=== PATIENT | male | born 1955 | race Caucasian/White ===

== ENCOUNTER → 2019-02-24 | Outpatient (CLI) | payer BC | LOC: M WUC 10:24 | PROVIDERS: ATTEND Physician Assistant | DX: M10.9 Gout, unspecified (principal) ==

== ENCOUNTER → 2020-07-15 | Outpatient (CLI) | payer MEDICARE ==
[~2020-07-15] MED LIST: ELIQ5TAB PO; ENTR1TAB PO; FURO40TA2 PO; POTA1TAB21 PO
--- NOTE | 2020-07-15 15:59 | REP ---
INDICATION: HTN. COMPARISON: No comparison radiographs. TECHNIQUE: Two views.. FINDINGS: The lungs are somewhat hyperinflated overall. There is moderate cardiac enlargement. Cardiothoracic ratio is increased measuring 53.0%. Thoracic aorta is somewhat tortuous. There are degenerative changes in the thoracic spine. Pulmonary vasculature is not increased. There is blunting of the right lateral and right posterior pleural angle and there is discoid atelectasis in the right lower lobe posteriorly adjacent to this. No infiltrate is seen. IMPRESSION: Cardiomegaly with a small right pleural effusion. Mild platelike atelectasis right base. <Electronically signed by Eduardo Lemos > 07/15/20 [id number]
[2020-07-15 16:42] LABS: HEMATOCRIT 47.9 % (42.0-52.0); HEMOGLOBIN 15.2 g/dl (13.5-17.5); MEAN CORPUSCULAR HEMOGLOBIN 31.5 pg (27.0-33.0); MEAN CORPUSCULAR HGB CONC 31.7 g/dl (32.0-36.5); MEAN CORPUSCULAR VOLUME 99.4 fl (80.0-96.0); PLATELET COUNT, AUTOMATED 231 10^3/uL (150-450); RED BLOOD COUNT 4.82 10^6/uL (4.30-6.10); WHITE BLOOD COUNT 9.6 10^3/uL (4.0-10.0)
[2020-07-15 17:15] LABS: HEMOGLOBIN A1c 6.4 %
[2020-07-15 17:25] LABS: ALBUMIN 3.5 GM/DL (3.2-5.2); ALT/SGPT 64 U/L (12-78); BILIRUBIN,TOTAL 1.1 MG/DL (0.2-1.0); BLOOD UREA NITROGEN 16 MG/DL (7-18); CALCIUM LEVEL 9.4 MG/DL (8.8-10.2); CARBON DIOXIDE LEVEL 27 MEQ/L (21-32); CHLORIDE LEVEL 107 MEQ/L (98-107); CHOLESTEROL LEVEL 125 MG/DL (<200); CHOLESTEROL RISK RATIO 3.378 (<5); CREATININE FOR GFR 1.02 MG/DL (0.70-1.30); GLOMERULAR FILTRATION RATE > 60.0 (>49); GLUCOSE, FASTING 99 MG/DL (70-100); HDL CHOLESTEROL 37 MG/DL (>40); LDL CHOLESTEROL 76 MG/DL (<100); NON-HDL-C 88 MG/DL; POTASSIUM SERUM 5.3 MEQ/L (3.5-5.1); PROSTATIC SPECIFIC AG MONITOR 1.19 NG/ML (< 4.00); SODIUM LEVEL 140 MEQ/L (136-145); TESTOSTERONE 129 NG/DL (241-827); TOTAL PROTEIN 6.6 GM/DL (6.4-8.2); TRIGLYCERIDES LEVEL 62 MG/DL (<150)
== END ==
LOC: M WUC 11:27
PROVIDERS: ATTEND Family Medicine
DX: I51.7 Cardiomegaly (principal); J90 Pleural effusion, not elsewhere classified; J98.11 Atelectasis; E03.9 Hypothyroidism, unspecified

== ENCOUNTER 2020-07-17 07:25 | Inpatient (IN) | payer MEDICARE ==
[2020-07-17] VITALS (21 sets, daily range): BP systolic 108–139; BP diastolic 68–101
[~2020-07-17] VITALS: Ht 182.9 cm; Wt 89.6 kg
[2020-07-17] MEDS ORDERED: POTA1TAB21 PO (07:42)
[2020-07-17] MEDS ORDERED: FURO40TA2 PO (07:42)
[2020-07-17] MEDS: METOPROLOL 5 MG/5 ML VIAL IV SCH ×6 (07:56→09:21)
[2020-07-17] MEDS ORDERED: ASPIRIN 81 MG CHEW TABLET PO ONE (08:15)
--- NOTE | 2020-07-17 08:53 | REP ---
INDICATION: CHEST PAIN. COMPARISON: 07/15/2020. TECHNIQUE: SINGLE PORTABLE AP VIEW OF THE CHEST WAS PERFORMED. FINDINGS: Mild parenchymal opacity in the right lung base likely represents mild atelectasis or infiltrate. The left lung appears clear. The heart is mildly enlarged. There is mild calcification of the thoracic aorta. The mediastinal silhouette is unchanged. IMPRESSION: Mild right base atelectasis/infiltrate.Mild cardiomegaly. <Electronically signed by Laith Palomares > 07/17/20 [id number]
--- NOTE | 2020-07-17 08:54 | REP ---
INDICATION: swelling COMPARISON: None. TECHNIQUE: Four views obtained. FINDINGS: There is no acute fracture or dislocation. There is moderate diffuse joint space narrowing with mild subchondral sclerosis and cystic change. Vascular calcifications are seen posteriorly. There does not appear to be a significant joint effusion. IMPRESSION: No fracture or dislocation. Moderate degenerative changes. <Electronically signed by Laith Palomares > 07/17/20 0914
[2020-07-17] MEDS ORDERED: METOPROLOL 5 MG/5 ML VIAL IV SCH (09:00)
[2020-07-17] MEDS ORDERED: METOPROLOL TART 50 MG TAB PO ONE ×2 (09:00→09:30)
[2020-07-17] MEDS ORDERED: APIXABAN 5 MG TAB (ELIQUIS) PO ONE (09:00)
[2020-07-17] MEDS ORDERED: FUROSEMIDE 40 MG TAB PO ONE (09:00)
[2020-07-17] MEDS ORDERED: FUROSEMIDE 40MG/4ML VIAL (J1940) As Ordered ONE (09:00)
[2020-07-17] MEDS ORDERED: FUROSEMIDE 40MG/4ML VIAL (J1940) IV ONE (09:00)
[2020-07-17 09:26] LABS: ALBUMIN 3.5 GM/DL (3.2-5.2); BILIRUBIN,DIRECT 0.4 MG/DL (0.0-0.2); BILIRUBIN,TOTAL 0.9 MG/DL (0.2-1.0); FREE T4 1.77 NG/DL (0.76-1.46); MAGNESIUM LEVEL 1.9 MG/DL (1.8-2.4); THYROID STIMULATING HORMONE 1.88 uIU/ML (0.358-3.740); TOTAL PROTEIN 6.5 GM/DL (6.4-8.2)
[2020-07-17 09:51] LABS: BASO # 0.1 10^3/uL (0.0-0.2); BASO % 0.8 % (0.0-1.0); EOS # 0.1 10^3/uL (0.0-0.5); EOS % 1.3 % (0.0-3.0); HEMATOCRIT 47.2 % (42.0-52.0); HEMOGLOBIN 14.7 g/dl (13.5-17.5); LYMPH # 1.9 10^3/uL (1.5-5.0); LYMPH % 19.8 % (24.0-44.0); MEAN CORPUSCULAR HEMOGLOBIN 30.3 pg (27.0-33.0); MEAN CORPUSCULAR HGB CONC 31.1 g/dl (32.0-36.5); MEAN CORPUSCULAR VOLUME 97.3 fl (80.0-96.0); MONO % 10.5 % (0.0-5.0); NEUTROPHILS # 6.5 10^3/uL (1.5-8.5); NEUTROPHILS % 67.1 % (36.0-66.0); PLATELET COUNT, AUTOMATED 237 10^3/uL (150-450); RED BLOOD COUNT 4.85 10^6/uL (4.30-6.10); WHITE BLOOD COUNT 9.7 10^3/uL (4.0-10.0)
[2020-07-17 10:01] LABS: INR 1.14; PROTHROMBIN TIME 14.9 SECONDS (12.5-14.3)
[2020-07-17 10:02] LABS: PARTIAL THROMBOPLASTIN TIME 30.3 SECONDS (24.2-38.5)
[2020-07-17] MEDS ORDERED: HEPARIN SOD (PORCINE) 5000UNITS/ML 1ML VIAL/SYRINGE IV PRN (11:15)
[2020-07-17] MEDS ORDERED: FUROSEMIDE injection 250 MG in D5W 225 ML IV SCH (11:15)
[2020-07-17] MEDS: diltiaZEM 125 MG in NS 100 ML IV SCH (12:25)
--- NOTE | 2020-07-17 17:43 | HPEPDOC ---
General Date of Admission Jul 17, 2020 at 10:13 Date of Service: Jul 17, 2020 Primary Care Physician: Lynne Manley Attending Physician: SHANNON GALLO MD Chief Complaint The patient is a 65-year-old male admitted with a reason for visit of Atrial Flutter With Rapid Ventricular Response. History of Present Illness History of present illness: Mr. Sahni is a 65-year-old male patient with no known medical comorbidities was sent to the [facility] ED by his PCP as his EKG was abnormal. The ED patient reports having mild shortness of breath on exertion since 3 weeks, not that severe that he has to stop walking, and bilateral swelling of the legs extending up to the knees. Denies having any orthopnea. He reports his swelling in legs initially started in left leg and gradually progressed to right leg. He denies having any head aces, chest pain, abdominal pain, nausea, vomiting, diarrhea. Past medical history: No known medical comorbidities. Past surgical history: Left knee surgery 50 years ago. Social history: Patient lives with his , reports smoking a pipe occasionally, alcohol over the weekend like 3 to 5 beers, reports no illicit drug use, no recreational drug use. Family History: Non- contributory. REVIEW OF SYSTEMS: Constitutional: Denies having fever, chills, night sweats, weight loss, headaches. Eyes: Denies any blurry vision or double vision. ENT: Denies any dysphagia, odynophagia, ear discharge. Cardiovascular: Denies any chest pain or palpitations. Respiratory: Mild shortness of breath, no cough Gastrointestinal (GI): Denies any nausea or vomiting. Genitourinary: Denies dysuria, hematuria. Musculoskeletal: Denies any muscle aches and pains. Skin: Denies any rashes or ulcers. All other review of systems is negative. PHYSICAL EXAMINATION: Vital Signs: Temperature: 97.9 Pulse: 121 RR: 16 BP: 121/81 Oxygen saturation %: 91 on room air General: Well developed, Patient is awake, alert, oriented times three, laying in bed , no apparent distress. Eyes: Conjunctiva clear, pupils equal round and reactive to light. ENT: Hearing Bilateral normal. No nasal deviation, oropharynx clear with no lesions/erythema. Cardiovascular: S1, S2, normal rhythm, no murmur, rub, or gallop. Respiratory: Bilateral lower lobes crackles, normal breath sounds are heard in upper lobes, no rhonchi, wheezes or rubs. Abdomen: Soft, bowel sounds positive, no bruits. Nontender on palpation. Extremities: No clubbing or cyanosis. 2+ pedal edema noted in bilateral lower limbs extending up to the knees. 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 Cranial nerves III-XII grossly intact. Motor: Strength normal, patient moves all extremities. Skin: No rashes, lesions, ulcerations, subcutaneous nodules or induration. Imaging: Chest x-ray: 07/17/2020, reported as mild right base atelectasis/infiltration. Mild cardiomegaly. Left knee imagin07/17/2020, reported as no fracture or dislocation. Moderate degenerative changes. Assessment: Mr. Sahni is a 65 year old male patient with no known comorbidities was told by his PCP to come to the [facility] ED as he was having abnormal EKG. He reports having mild shortness of breath on exertion since 3 weeks, no chest pain. Upon workup in the ED his EKG was showing consistently atrial fib rillation/atrial flutter. Plan: Atrial fibrillation/atrial flutter: Patient had a heart rate in 130-140, Will start him on cardiazem 15mg drip, will titrate based on his heart rate. Decreased Cardizem to 5 mg drip with holding parameters of less than 110 heart rate. If his heart rate is less than 100 consistently for at least 1 hour switch him to 30mg every 6 Cardizem by mouth and stop the drip in 1-2 hours after the switch. Will repeat his TSH and free T4 levels to see if it is related to her hyperthyroidism (his initial free T4 levels are mildly elevated). Will get to urine tox screen just to rule out any intoxication. His electrolytes were normal , Will continue to monitor if any abnormal will try to replace them. Patient was given a dose of Eliquis 5 mg ED, start him on heparin drip at 21:00 today. Ischemic cardiomyopathy vs nonischemic cardiomyopathy: His initial troponins were elevated 0.46 Will trend his troponins if downtrending Will continue to monitor. Will get 2-D echo to rule out structural abnormality/valvular abnormality. Lower extremity pedal edema: Patient has bilateral pedal edema. Will start on Lasix 40 mg IV daily. Will obtain 2-D echo. DVT prophylaxis: Teds and sequentials. Home Medications Scheduled Apixaban (Eliquis) 5 Mg Tablet, 5 MG PO BID Furosemide (Furosemide) 40 Mg Tablet, 40 MG PO DAILY, (Reported) Potassium Chloride (Potassium Chloride) 8 Meq Tablet.er, 8 MEQ PO DAILY, (Reported) Sacubitril/Valsartan (Entresto 24 mg-26 mg Tablet) 1 Each Tablet, 1 TAB PO BID Allergies Coded Allergies: No Known Allergies (Unverified , 07/17/20) A-FIB/CHADSVASC A-FIB History Current/History of A-Fib/PAF?: Yes Current PO Anticoag Therapy: Yes Vital Signs Vital Signs Date Time Temp Pulse Resp B/P (MAP) Pulse Ox O2 Delivery O2 Flow Rate FiO2 07/17/20 13:30 125 130/68 (88) 86 Room Air 07/17/20 12:00 97.3 16 07/17/20 11:30 2.0 Laboratory Data Labs 24H Laboratory Tests 2 07/17/20 07:47: POC Glucose (Misc Panel) 177H, POC Sodium (Misc Panel) 141, POC Potassium (Misc Panel) 4.1, POC Chloride (Misc Panel) 104, POC Total CO2 (Misc Panel) 25.0, POC Blood Urea Nitrogen (Misc Panel 25, POC Ionized Calcium (Misc Panel) 5.0, POC Lactate (Misc Panel) 2.35*H, POC Creatinine (Misc Panel) 1.1, POC Hematocrit (Misc Panel) 48.0 07/17/20 07:48: Immature Granulocyte % (Auto) 0.5, Neutrophils (%) (Auto) 67.1H, Lymphocytes (%) (Auto) 19.8L, Monocytes (%) (Auto) 10.5H, Eosinophils (%) (Auto) 1.3, Basophils (%) (Auto) 0.8, Neutrophils # (Auto) 6.5, Lymphocytes # (Auto) 1.9, Monocytes # (Auto) 1.0H, Eosinophils # (Auto) 0.1, Basophils # (Auto) 0.1, Nucleated Red Blood Cells % (auto) 0.0, Prothrombin Time 14.9H, Prothromb Time International Ratio 1.14, Activated Partial Thromboplast Time 30.3, Magnesium Level 1.9, Total Bilirubin 0.9, Direct Bilirubin 0.4H, Aspartate Amino Transf (AST/SGOT) 53H, Alanine Aminotransferase (ALT/SGPT) 72, Alkaline Phosphatase 95, AN-Xeq-D-Type Natriuretic Peptide 4150H, Total Protein 6.5, Albumin 3.5, Albumin/Globulin Ratio 1.2, Lipase 118, Thyroid Stimulating Hormone (TSH) 1.880, Free Thyroxine 1.77H 07/17/20 07:50: POC Troponin I (Misc) 0.46H 07/17/20 09:55: POC Troponin I (Misc) 0.30H 07/17/20 12:20: Lactic Acid Followup at 4 Hours 2.1*H CBC/BMP Laboratory Tests 07/17/20 07:48 Plan / VTE VTE Prophylaxis Ordered?: Yes GME ATTESTATION GME ATTESTATION My faculty preceptor for this patient encounter was physically present during the encounter and was fully available. All aspects of the patient interview, examination, medical decision making process, and medical care plan development were reviewed and approved by the faculty preceptor. The faculty preceptor is aware and concurs with the plan as stated in the body of this note and will attest to such by his/her cosignature. ATTENDING NOTE Patient was seen and examined by me personally with the residents/ students. I agree with the above assessment and plan Henrique Nielsen MD Jul 17, 2020 15:40 SHANNON GALLO MD Jul 21, 2020 12:45
--- NOTE | 2020-07-17 17:50 | ECGEPIP ---
[facility] Test Date: 2020-07-17 Pat Name: GRAYSON MASTERSON Department: Room: [place] [address] Gender: Male Floral Department Specialist: NISSA : 1955 Requested By: Henrique Nielsen Order Number: [id number] Reading MD: Art Lopez Measurements Intervals [place] Rate: 100 P: [place]: 0 QRS: 60 QRSD: 102 T: 142 QT: 393 QTc: 509 Interpretive Statements Underlying atrial flutter with essentially controlled ventricular response. F Frequent isolated PVCs Low limb voltage with slow precordial R wave progression; body habitus versus p pulmonary disease. Rule out prior septal infarction. Prominent precordial voltage with lateral strain pattern; probable LVH. Slower rate than earlier the same day. Electronically Signed on 07-17-2020 17:50:07 EDT by Art Lopez
[2020-07-17] MEDS ORDERED: HEPARIN DRIP 25,000 UNITS in IV 1 EA IV SCH (21:00)
[2020-07-18] VITALS (23 sets, daily range): BP systolic 116–161; BP diastolic 73–111
[2020-07-18 02:58] LABS: BASO # 0.1 10^3/uL (0.0-0.2); BASO % 0.8 % (0.0-1.0); EOS # 0.2 10^3/uL (0.0-0.5); EOS % 2.6 % (0.0-3.0); HEMATOCRIT 42.8 % (42.0-52.0); HEMOGLOBIN 13.6 g/dl (13.5-17.5); MEAN CORPUSCULAR HEMOGLOBIN 29.9 pg (27.0-33.0); MEAN CORPUSCULAR HGB CONC 31.8 g/dl (32.0-36.5); MEAN CORPUSCULAR VOLUME 94.1 fl (80.0-96.0); MONO # 0.9 10^3/uL (0.0-0.8); MONO % 11.7 % (0.0-5.0); NEUTROPHILS # 4.1 10^3/uL (1.5-8.5); NEUTROPHILS % 56.6 % (36.0-66.0); PLATELET COUNT, AUTOMATED 197 10^3/uL (150-450); RED BLOOD COUNT 4.55 10^6/uL (4.30-6.10); WHITE BLOOD COUNT 7.3 10^3/uL (4.0-10.0)
[2020-07-18 03:53] LABS: BLOOD UREA NITROGEN 22 MG/DL (7-18); CALCIUM LEVEL 8.5 MG/DL (8.8-10.2); CARBON DIOXIDE LEVEL 24 MEQ/L (21-32); CHLORIDE LEVEL 112 MEQ/L (98-107); CREATININE FOR GFR 0.82 MG/DL (0.70-1.30); FREE T4 1.77 NG/DL (0.76-1.46); GLOMERULAR FILTRATION RATE > 60.0 (>49); GLUCOSE, FASTING 101 MG/DL (70-100); MAGNESIUM LEVEL 1.8 MG/DL (1.8-2.4); POTASSIUM SERUM 3.9 MEQ/L (3.5-5.1); SODIUM LEVEL 146 MEQ/L (136-145)
[2020-07-18] MEDS: diltiaZEM 125 MG in NS 100 ML IV SCH (04:32)
--- NOTE | 2020-07-18 07:27 | ECGEPIP ---
[facility] - ED Test Date: 2020-07-17 Pat Name: GRAYSON MASTERSON Department: Room: [place] [address] Gender: Male Ripsaw Operator: justin : 1955 Requested By: Hawa Mcbride Order Number: [id number] Reading MD: Дмитрий Ch Measurements Intervals [place] Rate: 136 P: [place]: 0 QRS: 60 QRSD: 100 T: 84 QT: 315 QTc: 475 Interpretive Statements ATRIAL FLUTTER/TACHYCARDIA WITH RAPID VENTRICULAR RESPONSE WITH ABERRANT CONDUCTION OR VENTRICULAR PREMATURE COMPLEXES POOR R WAVE PROGRESSION SIMILAR TO PRIOR ON SAME DATE Electronically Signed on 07-18-2020 7:27:23 EDT by Дмитрий Ch
[2020-07-18] MEDS ORDERED: METOPROLOL TARTRATE 100 MG TAB PO SCH ×2 (09:00→13:00)
[2020-07-18] MEDS: ENTRESTO 24-26MG TABLET (SACUBITRIL/VALSARTAN) PO SCH ×2 (09:00→20:45)
[2020-07-18] MEDS ORDERED: FUROSEMIDE 40MG/4ML VIAL (J1940) IV SCH (09:00)
[2020-07-18 09:33] LABS: INR 1.21; PROTHROMBIN TIME 15.6 SECONDS (12.5-14.3)
[2020-07-18 09:35] LABS: PARTIAL THROMBOPLASTIN TIME 80.4 SECONDS (24.2-38.5)
[2020-07-18] MEDS ORDERED: MAG SULF 1GM/100ML (MAG RUN) 1 GM in IV 1 EA IV ONE (10:15)
[2020-07-18] MEDS ORDERED: POTASSIUM CHLORIDE 10 MEQ SR TABLET PO ONE (10:15)
[2020-07-18] MEDS ORDERED: APIXABAN 5 MG TAB (ELIQUIS) PO ONE (12:00)
--- NOTE | 2020-07-18 12:11 | IPNPDOC ---
Text Note Date of Service The patient was seen on 07/18/20. NOTE Subjective: Patient is a 65-year-old male with no known comorbidities was sent to the [facility] ED by the PCP because of the abnormal EKG. In the ED he reports to have shortness of breath on exertion since 3 weeks, bilateral leg swelling, no chest pain. The patient seen at bedside on 07/18/2020. No acute events overnight as the patient, he denies having any palpitations, chest pain, abdominal pain, headache, nausea or vomiting. His heart rate dropped to 90s overnight for a while and the Cardizem drip rate was decreased and was switched to by mouth Cardizem, but later his heart rate was elevated so the drip rate was increased again. Reported by night team. Objective: General: Patient is awake, alert, oriented times three, laying in bed , no apparent distress. Cardiovascular: S1, S2, tachycardia, no murmur, rub, or gallop. Respiratory: Decreased crackles compared to yesterday in the lower lung bases, normal breath sounds are heard in upper lobes, no rhonchi, wheezes or rubs. Abdomen: Soft, bowel sounds positive, no bruits. Nontender on palpation. Extremities: No clubbing or cyanosis. 1+ pedal edema noted in bilateral ankles. Improvement in pedal edema compared to yesterday. 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 Cranial nerves III-XII grossly intact. Motor: Strength normal, patient moves all extremities. Skin: No rashes, lesions, ulcerations, subcutaneous nodules or induration. Imaging: Chest x-ray: 07/17/2020, reported as mild right base atelectasis/infiltration. Mild cardiomegaly. Left knee imagin07/17/2020, reported as no fracture or dislocation. Moderate degenerative changes. Assessment: Mr. Sahni is a 65 year old male patient with no known comorbidities was told by his PCP to come to the [facility] ED as he was having abnormal EKG. He reports having mild shortness of breath on exertion since 3 weeks, no chest pain. Upon workup in the ED his EKG was showing consistently atrial fibrillation/atrial flutter. Plan: Atrial flutter/atrial fibrillation: Cardiology was contacted, Dr. Lopez recommended to discontinue the Cardizem drip and start him on metoprolol 100 mg by mouth 3 times a day to maintain his heart rate less than 90. If the heart rate is still persistently high Dr. Lopez recommended on starting digoxin. We will wait at least few hours before adding an other agent. Will continue to monitor his heart rate. Will appreciate cardiology recommendations and will follow them. His repeat TSH was normal but his free T4 levels are mildly elevated. Echocardiogram is done but the report is pending. Ischemic cardiomyopathy versus nonischemic cardiomyopathy: His troponins were Over trending down. Echocardiogram is done, report pending. Lower extremity pedal edema: His edema in lower extremity is improving, 1+ pedal edema noted near the ankles. Lasix 40 MG IV daily. DVT prophylaxis: Eliquis 5 MG. VS,Fishbone, I+O VS, Fishbone, I+O Laboratory Tests 07/18/20 02:53 Vital Signs Date Time Temp Pulse Resp B/P (MAP) Pulse Ox O2 Delivery O2 Flow Rate FiO2 07/18/20 09:14 138 145/101 (116) 07/18/20 07:00 98.1 16 92 Room Air 07/18/20 04:00 2.0 I&O- Last 24 Hours up to 6 AM 07/18/20 06:00 Intake Total 741 ml Output Total 1850 ml Balance -1109 ml Henrique Nielsen MD Jul 18, 2020 11:02
[2020-07-18] MEDS ORDERED: DIGOXIN INJ 0.5 MG/2 ML AMP (J1160) IV ONE (13:00)
[2020-07-18] MEDS: bisoproloL fumarate 5 MG TAB PO SCH ×3 (14:31→23:58)
[2020-07-18] MEDS: SPIRONOLACTONE 12.5MG PER 1/2 TABLET PO SCH (14:31)
[2020-07-18] MEDS: DIGOXIN 0.25 MG TAB PO SCH (14:32)
[2020-07-18] MEDS: TORSEMIDE 20 MG TAB PO SCH (17:26)
[2020-07-18] MEDS ORDERED: APIXABAN 5 MG TAB (ELIQUIS) PO SCH (18:00)
[2020-07-18] MEDS: APIXABAN 5 MG TAB (ELIQUIS) PO SCH (20:45)
[2020-07-19] VITALS: BP 133/82
[2020-07-19] MEDS ORDERED: DIGOXIN INJ 0.5 MG/2 ML AMP (J1160) IV ONE ×2 (00:45→04:15)
[2020-07-19 04:00] VITALS: BP 148/84
[2020-07-19 04:26] LABS: BASO # 0.1 10^3/uL (0.0-0.2); BASO % 0.9 % (0.0-1.0); EOS # 0.2 10^3/uL (0.0-0.5); EOS % 2.4 % (0.0-3.0); LYMPH # 1.5 10^3/uL (1.5-5.0); LYMPH % 16.9 % (24.0-44.0); MEAN CORPUSCULAR HEMOGLOBIN 30.2 pg (27.0-33.0); MEAN CORPUSCULAR HGB CONC 32.7 g/dl (32.0-36.5); MEAN CORPUSCULAR VOLUME 92.3 fl (80.0-96.0); MONO # 1.1 10^3/uL (0.0-0.8); MONO % 12.1 % (0.0-5.0); NEUTROPHILS % 67.4 % (36.0-66.0); PLATELET COUNT, AUTOMATED 253 10^3/uL (150-450); WHITE BLOOD COUNT 8.9 10^3/uL (4.0-10.0)
[2020-07-19 04:29] LABS: HEMOGLOBIN 15.7 g/dl (13.5-17.5)
[2020-07-19] MEDS: bisoproloL fumarate 5 MG TAB PO SCH ×3 (05:04→17:08)
[2020-07-19 05:17] LABS: BLOOD UREA NITROGEN 17 MG/DL (7-18); CALCIUM LEVEL 8.4 MG/DL (8.8-10.2); CARBON DIOXIDE LEVEL 28 MEQ/L (21-32); CHLORIDE LEVEL 106 MEQ/L (98-107); CREATININE FOR GFR 0.83 MG/DL (0.70-1.30); GLOMERULAR FILTRATION RATE > 60.0 (>49); GLUCOSE, FASTING 109 MG/DL (70-100); MAGNESIUM LEVEL 1.7 MG/DL (1.8-2.4); POTASSIUM SERUM 3.8 MEQ/L (3.5-5.1); SODIUM LEVEL 142 MEQ/L (136-145)
[2020-07-19] MEDS ORDERED: MAGNESIUM OXIDE 400 MG TAB (MAG-OX) PO ONE (06:45)
[2020-07-19 08:01] VITALS: BP 135/84
[2020-07-19] MEDS: ENTRESTO 24-26MG TABLET (SACUBITRIL/VALSARTAN) PO SCH ×2 (08:04→20:03)
[2020-07-19] MEDS: DIGOXIN 0.25 MG TAB PO SCH (08:04)
[2020-07-19] MEDS: TORSEMIDE 20 MG TAB PO SCH ×2 (08:05→16:04)
[2020-07-19] MEDS: SPIRONOLACTONE 12.5MG PER 1/2 TABLET PO SCH (08:05)
[2020-07-19] MEDS: APIXABAN 5 MG TAB (ELIQUIS) PO SCH ×2 (08:05→20:03)
[2020-07-19] MEDS: POTASSIUM CHLORIDE 10 MEQ SR TABLET PO SCH ×2 (09:36→20:04)
[2020-07-19] MEDS: MAG SULF 1GM/100ML (MAG RUN) 1 GM in IV 1 EA IV SCH ×2 (09:37→12:26)
[2020-07-19 10:30] VITALS: BP 140/76
[2020-07-19] MEDS: AMIODARONE 200 MG TAB (PACERONE) PO SCH ×3 (12:26→20:03)
--- NOTE | 2020-07-19 17:08 | IPNPDOC ---
Subjective Date Seen The patient was seen on 07/19/20. Subjective Chief Complaint/HPI Mr. Sahni is a 65 year old male here with atrial fibrillation with RVR. This morning, he denies any fever/chills, chest pain, dyspnea, abdominal pain, or diarrhea. Cardiology following and adjusted medication. Since patient will not be going back on IV Cardizem, [place] heredia transferred to PCU. Objective Physical Examination General Exam: Positive: Alert, Cooperative Eye Exam: Positive: EOMI; Negative: Sclera icteric ENT Exam: Positive: Atraumatic Neck Exam: Positive: Supple Chest Exam: Positive: Clear to auscultation; Negative: Rales, Rhonchi, Wheezing Heart Exam: Positive: Tachycardic, Irregular Rhythm Abdomen Exam: Positive: Normal bowel sounds, Soft; Negative: Tenderness Extremity Exam: Negative: Clubbing, Cyanosis Neuro Exam: Positive: Cranial Nerves 3-12 NL Psych Exam: Positive: Mental status NL, Mood NL Assessment /Plan Assessment Mr. Sahni is a 65 year old male here with atrial flutter with rapid response. Cardiology following, recommendations appreciated. Today, not controlled with BB or digoxin. Cardiology started amiodarone today Plan/VTE VTE Prophylaxis Ordered?: Yes Plan 1. Uncontrolled atrial flutter -Cardiology following, recommendations appreciated -Not controlled with BB or digoxin. -Cardiology started amiodarone today. -AC with apixaban 2. Mild cardiomegaly -Echocardiogram ordered. Results pending -Continue Sacubitril/Valsartan, Atenolol, Torsemide, and spironolactone 3. Hypomagnesium -Electrolytes being monitored and replenished. 4. DVT ppx -On Apixaban VS, I&O, 24H, Fishbone Vital Signs/I&O Vital Signs Date Time Temp Pulse Resp B/P (MAP) Pulse Ox O2 Delivery O2 Flow Rate FiO2 07/19/20 12:25 103 140/76 07/19/20 10:30 97.5 20 96 Room Air 07/18/20 04:00 2.0 I&O- Last 24 Hours up to 6 AM 07/19/20 06:00 Intake Total 1032 ml Output Total 6655 ml Balance -5623 ml Laboratory Data 24H LABS Laboratory Tests 2 07/19/20 04:17: Immature Granulocyte % (Auto) 0.3, Neutrophils (%) (Auto) 67.4H, Lymphocytes (%) (Auto) 16.9L, Monocytes (%) (Auto) 12.1H, Eosinophils (%) (Auto) 2.4, Basophils (%) (Auto) 0.9, Neutrophils # (Auto) 6.0, Lymphocytes # (Auto) 1.5, Monocytes # (Auto) 1.1H, Eosinophils # (Auto) 0.2, Basophils # (Auto) 0.1, Nucleated Red Blood Cells % (auto) 0.0, Anion Gap 8, Glomerular Filtration Rate > 60.0, Calcium Level 8.4L, Magnesium Level 1.7L CBC/BMP Laboratory Tests 07/19/20 04:17 MAR,NANCY White DO Jul 19, 2020 17:08
[2020-07-19 20:00] VITALS: BP 130/73
[2020-07-19] MEDS: MAGNESIUM OXIDE 400 MG TAB (MAG-OX) PO SCH (20:03)
[2020-07-20] VITALS: BP 116/74
[2020-07-20] MEDS: bisoproloL fumarate 5 MG TAB PO SCH ×3 (00:13→12:35)
[2020-07-20 04:00] VITALS: BP 123/73
[2020-07-20 04:47] LABS: BASO # 0.1 10^3/uL (0.0-0.2); BASO % 0.7 % (0.0-1.0); EOS # 0.2 10^3/uL (0.0-0.5); EOS % 2.4 % (0.0-3.0); HEMATOCRIT 50.8 % (42.0-52.0); HEMOGLOBIN 16.8 g/dl (13.5-17.5); LYMPH % 22.2 % (24.0-44.0); MEAN CORPUSCULAR HEMOGLOBIN 30.4 pg (27.0-33.0); MEAN CORPUSCULAR HGB CONC 33.1 g/dl (32.0-36.5); MEAN CORPUSCULAR VOLUME 91.9 fl (80.0-96.0); MONO # 1.2 10^3/uL (0.0-0.8); MONO % 13.6 % (0.0-5.0); NEUTROPHILS # 5.4 10^3/uL (1.5-8.5); NEUTROPHILS % 60.8 % (36.0-66.0); PLATELET COUNT, AUTOMATED 251 10^3/uL (150-450); RED BLOOD COUNT 5.53 10^6/uL (4.30-6.10); WHITE BLOOD COUNT 8.8 10^3/uL (4.0-10.0)
[2020-07-20 05:11] LABS: BLOOD UREA NITROGEN 18 MG/DL (7-18); CALCIUM LEVEL 8.5 MG/DL (8.8-10.2); CARBON DIOXIDE LEVEL 30 MEQ/L (21-32); CHLORIDE LEVEL 104 MEQ/L (98-107); CREATININE FOR GFR 1.07 MG/DL (0.70-1.30); GLOMERULAR FILTRATION RATE > 60.0 (>49); GLUCOSE, FASTING 107 MG/DL (70-100); MAGNESIUM LEVEL 2.1 MG/DL (1.8-2.4); POTASSIUM SERUM 3.9 MEQ/L (3.5-5.1); SODIUM LEVEL 141 MEQ/L (136-145)
[2020-07-20 08:00] VITALS: BP 127/76
[2020-07-20] MEDS: POTASSIUM CHLORIDE 10 MEQ SR TABLET PO SCH ×2 (09:08→20:23)
[2020-07-20] MEDS: APIXABAN 5 MG TAB (ELIQUIS) PO SCH ×2 (09:09→20:22)
[2020-07-20] MEDS: DIGOXIN 0.125 MG TAB PO SCH (09:09)
[2020-07-20] MEDS: TORSEMIDE 20 MG TAB PO SCH ×2 (09:10→17:19)
[2020-07-20] MEDS: ENTRESTO 24-26MG TABLET (SACUBITRIL/VALSARTAN) PO SCH ×2 (09:10→20:23)
[2020-07-20] MEDS: AMIODARONE 200 MG TAB (PACERONE) PO SCH ×3 (09:10→17:18)
[2020-07-20] MEDS: MAGNESIUM OXIDE 400 MG TAB (MAG-OX) PO SCH ×2 (09:10→20:22)
[2020-07-20] MEDS: SPIRONOLACTONE 12.5MG PER 1/2 TABLET PO SCH (09:22)
[2020-07-20] MEDS ORDERED: ELIQ5TAB PO (09:55)
[2020-07-20] MEDS ORDERED: ENTR1TAB PO (09:55)
--- NOTE | 2020-07-20 11:42 | CR ---
DATE: 07/18/2020 REFERRING PHYSICIAN: Dr. 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 with a history of two months of increasing shortness of breath, six weeks increasing lower extremity edema and EKG performed at [facility], ordered by his primary provider yesterday showing atrial flutter with a rapid ventricular response. Upon is presentation, his heart rate was 144 beats per minute, blood pressure 191/128, respiratory rate 16, with 02 saturation of 96% on room air, and he was afebrile. His chest x-ray was reported as showing a mildly enlarged heart and possible right lung base infiltrate. EKG was interpreted as showing atrial flutter with rapid ventricular response at 136 beats per minute with PVCs and poor R-wave progression. An echocardiogram was performed yesterday with official report pending, but I have reviewed this personally and will discuss the findings later in this document. CARDINAL CARDIAC SYMPTOMS: The patient has occasional dietary related heartburn but denies any effort related chest, jaw or arm discomfort. His first EKG was performed yesterday and he is unaware of the abnormalities. No history of stress testing. Denies any problem with reflux, dysphagia or GI bleeding. He has not undergone colonoscopy. Shortness of breath: was exposed to second hand smoke for at least 10 years growing up and smoked himself for approximately 10 years from the age of 20s to his 30s. Has not been aware of any cough. Denies any history of hemoptysis or prior pneumonia. Has noticed some effort related shortness of breath, perhaps this past 2 months. He has also noticed orthopnea the past 2-3 weeks with intermittent episodes of paroxysmal nocturnal dyspnea. Has a prior history of snoring and possible apnea but no previous sleep study performed. Nocturia times one is chronic. No history of rheumatic fever or heart murmur. Has been told he had at least mildly elevated blood pressure since high school. Was never started on medications. Blood pressure always referred to as white coat syndrome. Has never had a prior x-ray before yesterday and he is unaware of cardiomegaly. Weight problem (weight 185 pounds at age 16; current weight is his maximum at 215 pounds yesterday; believes he has gained at least 10 pounds this past year). Palpitations: claims not to have had an awareness of his heart action. No previous documentation of rhythm disturbance. No family history of premature coronary heart disease or sudden cardiac . No family history of congenital deafness. Admits to drinking at least 8-10 cups of caffeinated coffee daily and perhaps as much as four bottles of beer daily. Current nonsmoker. No history of thyroid disorder. Does not use [id number] decongestants, pep pills or diet aids. Near syncope/syncope: yesterday on his way into the hospital and while in the hospital was the first time he felt lightheadedness or faint, but has never fallen or lost consciousness. Embolic phenomenon: denies any lateralizing neurological deficits, flank pain, hematuria or blue toe syndrome. Claudication/peripheral venous disease: denies effort related calf discomfort. No previous history of varicose veins or phlebitis, but has noticed gradually worsening lower extremity edema in the past 1-2 months. Coronary risk factors: male gender. Age. Hypertension. Prior smoker. Stress glucose intolerance (random blood sugar 177 yesterday). Unaware of his cholesterol status. He was adopted so is unfamiliar with family history other than his twin brother who had a brain aneurysm repaired. OTHER MEDICAL/SURGICAL HISTORY: Underwent laparoscopic repair of medial meniscus and ligamentous tear suffered with sports in high school at age 16. No other hospitalizations or surgeries. SYSTEMS REVIEW: Denies any fevers, chills or weight loss. Wears corrective lenses. No hearing problems. Has his own teeth. No thyroid dysfunction. Respiratory as mentioned above. Cardiovascular as mentioned above. GI: as mentioned has dietary related heartburn infrequently. Good appetite. No abdominal pain. Regular bowel habit with no GI bleeding. Nocturia times one but no hematuria, kidney stones or renal insufficiency. Does occasionally have a left knee arthralgia but no other musculoskeletal complaints. No rashes, ecchymotic lesions. ALLERGIES: No known. MEDICATIONS: At the time of his admission yesterday he reports having just been started on Lasix 40 mg daily with Potassium Chloride 8 mEq daily. PHYSICAL EXAMINATION: CONSTITUTIONAL: Tall, bright, pleasant, white middle aged male laying comfortably with the head of the bed elevated 30 degrees. No pallor or cyanosis. VITAL SIGNS: Heart rate 138 beats per minute and regular with irregularities. Blood pressure 138/70 supine, 128/78 sitting with legs bent (both arms), respiratory rate 16 with 02 saturation 94% on room air. Afebrile. Weight 211 pounds. Height 72 inches. BMI 28.6. EYES: Normal conjunctivae without pallor, icterus or petechiae. No xanthelasma. ENT: Mouth: Normal oral moisture. No central cyanosis. Has his own teeth. NECK: Trachea midline. Thyroid was not enlarged. Neck veins were markedly elevated, at least 8-10 cm above the sternal angle. RESPIRATORY: Slightly increased anterior posterior chest diameter with adequate chest expansion. Has bibasilar inspiratory rales. Normal expiratory sounds without wheeze. CARDIOVASCULAR: Apical impulse at the midline fifth intercostal space. Heart sounds were variable. Unable to detect S2 splitting. With this heart rate, unable to detect a gallop. No audible murmur or rub. Carotid upstrokes were normal with slightly variable volume related to his arrhythmia. No bruits. Upper extremity, femoral and pedal pulses were symmetrical and normal. Abdominal aorta was not palpable. No bruits. EXTREMITIES: No clubbing, peripheral cyanosis or splinter hemorrhages. Has pitting edema from his foot up to the mid thigh bilaterally with pitting over the sacrum and lower lumbar spine as well. GI: Soft, nontender abdomen with no hepatosplenomegaly. Liver span measuring 8 cm in the mid clavicular line. Normal bowel sounds. Rectal examination not indicated. MUSCULOSKELETAL: No obvious joint deformities. Normal muscular strength and tone. Normal spine curvature. NEURO/PSYCH: Bright, alert and oriented. Gave a lucid history. Eye, facial, and extremity moves were symmetrical and normal with no involuntary movements. Affect was appropriate. SKIN: No rashes, ecchymotic lesions. Some stasis dermatitis lower extremities related to his edema. INVESTIGATIONS: Single P.A. upright chest x-ray taken in the Emergency Room yesterday was reviewed independently and shows obvious cardiomegaly with CT ratio of 20:36. His thoracic aorta was slightly unfolded. Pulmonary vasculature was not abnormal. No obvious pleural effusion or localized infiltrate. EKGs: Serial tracings were reviewed and show underlying atrial flutter with initially a rapid ventricular response that is improved slightly on follow up tracings. Occasional frequent, isolated PVCs but no more complex ventricular arrhythmia. Low limb voltages, but prominent precordial voltage with lateral strain, in keep with left ventricular hypertrophy. Poor precordial R-wave progression, could not rule out a prior infarction. No repolarization abnormalities as mentioned. ECHOCARDIOGRAMS/DOPPLER STUDY: This study was apparently interpreted by Dr. Quesada, [facility] yesterday, but the official report is not available. I reviewed the study personally and this shows enlargement of all four cardiac chambers of a moderate degree with severe atrial enlargement. There was also fairly global hypokinesis with estimated left ventricular ejection fraction of 20%. Normal aortic root size but dilated IVC measuring 2.5 cm with virtually absent respiratory collapse in keeping with an elevated central venous pressure. Normal appearing and functioning aortic valve with premature cusp closure and reduced motion of the aortic root in keeping with reduce forward stroke volume. Mild degenerative changes of the mitral valvular apparatus with at least mild mitral insufficiency. There was at least moderate to moderately severe tricuspid insufficiency that was eccentric. No apparent intracardiac mass or pericardial effusion. BLOOD WORK: Hemoglobin on admission 14.7, normal white blood cell count and platelet counts. Admission PT/INR was 14.9/1.14, slightly abnormal. Normal PTT. Initial chemistry confirmed electrolyte balance with serum potassium of 4.1, magnesium 1.9, BUN 25, creatinine 1.1, random glucose 177, serial troponin-I levels were obtained showing indeterminate values of 0.3/0.46 and finally 0.29 yesterday. Pro BNP level was elevated at 4,150. Liver function studies were slightly abnormal with marginally elevated SGOT, normal SGPT and alkaline phosphatase, normal total bilirubin. Lipase was also normal. Albumin was 3.5. Thyroid stimulating hormone 1.88 with free T-4 of 1.77. IMPRESSION/PLAN: * Atrial flutter with rapid ventricular response: from his history, unfortunately we cannot tell how long he has had this arrhythmia. Undoubtedly, the underlying etiology is hypertension. Excessive caffeine and alcohol may well have been triggers, along with possible obstructive sleep apnea. His ventricular response has been somewhat challenging to control, I suspect related to his left ventricular dysfunction. 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 We are cautiously optimistic left ventricular performance will improve with rate control. In light of his age, hypertension and heart failure, he is at a high risk of system thromboembolic event, and certainly justifies lifelong oral anticoagulation with Eliquis 5 mg twice daily. With his documented heart failure, we have introduced Digoxin which has been shown to prolong life in patients who have atrial tachyarrhythmias associated with heart failure. In light of his left ventricular dysfunction, Metoprolol Tartrate would not be the drug of choice. We have elected to replace this with some Bisoprolol 5 mg q. 6 h. and hold for heart rate less than 90 beats per minute. In light of his severe dilated atria, I am somewhat pessimistic with regard to the possibility of restoring an organized atrial mechanism, but once he is compensated and controlled, it may be worthwhile to consider an atrial flutter ablation procedure. * Heart failure (systolic and diastolic/chronic): judging from his echocardiographic findings, we are dealing with a condition of some chronicity, not one or two months. He has obvious clinical signs and symptoms of congestive heart failure that have been present for at least the past several months. As mentioned, I suspect the underlying etiology is his hypertensive heart disease and possibly alcoholism. A sleep disturbance may well have been contributing to his right heart failure which appears more evident than his left. Undoubtedly, the most important measure to help his heart would be to control his ventricular response as mentioned above. We have discussed frankly the need for a modest salt and fluid intake restriction. He will require diuretic therapy, and we have taken the liberty of replacing his IV Lasix with Torsemide 20 mg twice daily with Spironolactone 12.5 mg daily. In light of his cardiomegaly and left ventricular dysfunction, we have also started him on Entresto, low dose 24:26 mg tablets, one tablet twice daily and will plan on gradually escalating the dosage. For the time being, he should be performing only very light activities while we are adjusting his medications. His chemistry will be monitored closely with you along with his fluid status. I have requested the nurse provide him with CHF literature for education. Eliquis anticoagulation will be adequate prophylaxis against DVT. * PVCs: fortunately despite his severe left ventricular dysfunction and rapid atrial flutter, we have observed no more than low grade ventricular ectopic activity at this time. We have discussed the potential risk of sudden with his left ventricular dysfunction of perhaps 10% annually. Prior to his discharge home, we will arrange for a life vest. We are hoping that our anti- failure measures and rate control will significantly improve his left ventricular function. Should his ejection fraction remain less than 35% after 90 days, at least a single chamber implantable cardioverted defibrillator would be indicated for primary prevention of sudden . * Abnormal EKG: findings in keeping with hypertensive heart disease. Poor precordial R-wave progression suggestive of prior anteroseptal infarction, yet his echocardiogram did not show any localized wall motion abnormality. With his multiple coronary risk factors and indeterminate troponin-I levels, it would be prudent to objectively define his coronary prognosis. We are hoping to arrange noninvasive cardiac testing as an outpatient treadmill versus pharmacological stress heart scan. * Hypertensive heart disease: as mentioned above, believed to be the chief etiology for his structural and functional heart problems. Current blood pressure seems adequately controlled. I am cautiously optimistic this will be able to be controlled with combination Bisoprolol, Entresto, Torsemide and Spironolactone. As mentioned, his blood pressure and chemistry will be monitored closely with you. * Mitral valve disorder (non-rheumatic): the observed mitral insufficiency and tricuspid insufficiency are believed to be primarily on the basis of left and right ventricular enlargement and dysfunction rather than intrinsic valvular heart disease. He does have some subtle degenerative changes of his mitral valvular apparatus. Fortunately no symptoms or signs of endocarditis. * Sleep disturbance (unspecified): from his description, I suspect he does obstructive sleep apnea. It would be prudent to consider at least a screening nocturnal oximetry prior to his discharge home, but once he is better compensated. The above impression and plans have been discussed with the patient quite frankly. He appears to understand and agree. We will plan on following him closely with you and appreciate the opportunity to participate in his cares. Best regards. Yours truly, Art Lopez MD, [facility]
[2020-07-20 12:00] VITALS: BP 128/81
[2020-07-20 16:00] VITALS: BP 130/77
--- NOTE | 2020-07-20 16:32 | IPNPDOC ---
Subjective Date Seen The patient was seen on 07/20/20. Subjective Chief Complaint/HPI Mr. Sahni is a 65 year old male here with atrial fibrillation with RVR and CHF. This morning, he denies any fever/chills, chest pain, dyspnea, abdominal pain, or dysuria. Spoke with Cardiology. Since patient is still diuresing, will need to be monitored while on new cardiac medication. Objective Physical Examination General Exam: Positive: Alert, Cooperative Eye Exam: Positive: EOMI; Negative: Sclera icteric ENT Exam: Positive: Atraumatic Neck Exam: Positive: Supple Chest Exam: Positive: Clear to auscultation; Negative: Rales, Rhonchi, Wheezing Heart Exam: Positive: Tachycardic, Irregular Rhythm Abdomen Exam: Positive: Normal bowel sounds, Soft; Negative: Tenderness Extremity Exam: Negative: Clubbing, Cyanosis Neuro Exam: Positive: Cranial Nerves 3-12 NL Psych Exam: Positive: Mental status NL, Mood NL Assessment /Plan Assessment Mr. Sahni is a 65 year old male here with atrial flutter with rapid response. Cardiology following, recommendations appreciated. Heart rate better controlled with Digoxin, Amiodarone, and Bisoprolol. Still requires diuresis with BID torsemide and spironolactone. Will need continued monitoring while being diuresed as he is on new cardiac medication Plan/VTE VTE Prophylaxis Ordered?: Yes Plan 1. Uncontrolled atrial flutter -Cardiology following, recommendations appreciated -Continue with amiodarone, BB, and digoxin -AC with apixaban 2. Acute CHF -Echocardiogram ordered. Results pending -Being diuresed on Torsemide and spironolactone -Continue Sacubitril/Valsartan and Atenolol 3. Hypomagnesium -Electrolytes being monitored and replenished. 4. DVT ppx -On Apixaban VS, I&O, 24H, Fishbone Vital Signs/I&O Vital Signs Date Time Temp Pulse Resp B/P (MAP) Pulse Ox O2 Delivery O2 Flow Rate FiO2 07/20/20 12:35 93 128/81 07/20/20 12:00 98.3 16 94 Room Air 07/18/20 04:00 2.0 I&O- Last 24 Hours up to 6 AM 07/20/20 06:00 Intake Total 660 ml Output Total 800 ml Balance -140 ml Laboratory Data 24H LABS Laboratory Tests 2 07/20/20 04:18: Immature Granulocyte % (Auto) 0.3, Neutrophils (%) (Auto) 60.8, Lymphocytes (%) (Auto) 22.2L, Monocytes (%) (Auto) 13.6H, Eosinophils (%) (Auto) 2.4, Basophils (%) (Auto) 0.7, Neutrophils # (Auto) 5.4, Lymphocytes # (Auto) 2.0, Monocytes # (Auto) 1.2H, Eosinophils # (Auto) 0.2, Basophils # (Auto) 0.1, Nucleated Red Blood Cells % (auto) 0.0, Anion Gap 7L, Glomerular Filtration Rate > 60.0, Calcium Level 8.5L, Magnesium Level 2.1 CBC/BMP Laboratory Tests 07/20/20 04:18 NANCY ROCA DO Jul 20, 2020 16:32
[2020-07-20 20:00] VITALS: BP 128/74
[2020-07-20] MEDS: bisoproloL fumarate 10 MG TAB PO SCH (20:23)
--- NOTE | 2020-07-20 21:06 | ECGEPIP ---
[facility] Test Date: 2020-07-20 Pat Name: GRAYSON MASTERSON Department: Room: [place] [address] Gender: Male Electronic Tester: NISSA : 1955 Requested By: Art Lopez Order Number: [id number] Reading MD: Rigoberto Baldwin Measurements Intervals [place] Rate: 93 P: MA: 0 QRS: -25 QRSD: 101 T: 161 QT: 251 QTc: 313 Interpretive Statements ATRIAL FLUTTER/TACHYCARDIA WITH ABERRANT CONDUCTION OR VENTRICULAR PREMATURE COMPLEXES Low QRS complex voltage in the limb leads NONSPECIFIC ST & T-WAVE ABNORMALITY Similar to tracing done 07-17-20 Electronically Signed on 07-20-2020 21:06:31 EST by Rigoberto Baldwin
[2020-07-21] VITALS: BP 118/69
[2020-07-21 04:00] VITALS: BP 135/83
[2020-07-21] MEDS: AMIODARONE 200 MG TAB (PACERONE) PO SCH ×4 (05:05→17:20)
[2020-07-21 05:19] LABS: BASO # 0.1 10^3/uL (0.0-0.2); BASO % 0.7 % (0.0-1.0); EOS # 0.2 10^3/uL (0.0-0.5); EOS % 2.9 % (0.0-3.0); HEMATOCRIT 53.4 % (42.0-52.0); HEMOGLOBIN 17.6 g/dl (13.5-17.5); LYMPH # 2.1 10^3/uL (1.5-5.0); MEAN CORPUSCULAR HEMOGLOBIN 30.4 pg (27.0-33.0); MEAN CORPUSCULAR VOLUME 92.4 fl (80.0-96.0); MONO # 1.2 10^3/uL (0.0-0.8); MONO % 14.3 % (0.0-5.0); NEUTROPHILS # 4.5 10^3/uL (1.5-8.5); NEUTROPHILS % 55.7 % (36.0-66.0); PLATELET COUNT, AUTOMATED 276 10^3/uL (150-450); RED BLOOD COUNT 5.78 10^6/uL (4.30-6.10); WHITE BLOOD COUNT 8.1 10^3/uL (4.0-10.0)
[2020-07-21 05:49] LABS: BLOOD UREA NITROGEN 19 MG/DL (7-18); CARBON DIOXIDE LEVEL 28 MEQ/L (21-32); CHLORIDE LEVEL 105 MEQ/L (98-107); CREATININE FOR GFR 1.01 MG/DL (0.70-1.30); GLOMERULAR FILTRATION RATE > 60.0 (>49); GLUCOSE, FASTING 105 MG/DL (70-100); MAGNESIUM LEVEL 2.2 MG/DL (1.8-2.4); POTASSIUM SERUM 4.3 MEQ/L (3.5-5.1); SODIUM LEVEL 140 MEQ/L (136-145)
--- NOTE | 2020-07-21 07:32 | ECHO ---
DATE OF PROCEDURE: 07/17/2020 Age: 65 Gender: Male REFERRING PHYSICIAN: PATIENT LOCATION: [facility] REASON FOR THE STUDY: Cardiac arrhythmias. MEASUREMENTS: 2D measurements: IVS 1.2 cm LV 5.5 cm LVPW 1.2 cm LA 5.6 cm Aorta 3.5 cm IVC 3.1 cm DOPPLER MEASUREMENTS: Peak velocity across the aortic valve 0.88 meters per second Peak velocity across the LVOT 0.78 meters per second Mitral E 0.66. Maximum tricuspid valve jet velocity 2.0 meters per second 2D COMMENTS: 1. Mildly enlarged left ventricle with normal left ventricular size, but left ventricular systolic ejection fraction is severely depressed. Left ventricular systolic ejection fraction (EF) is 10 to 20%. Global hypokinesis was noted. 2. Moderately enlarged left atrium and right atrium. Normal right ventricle. 3. The atrial septum appears to be normal without evidence of defector shunt. 4. Normal aortic root. 5. No pericardial effusion seen. 6. Mildly calcified aortic valve with normal leaflet excursion. Mildly calcified mitral annulus with normal anterior mitral valve leaflet motion. Normal tricuspid and pulmonic valve. The proximal pulmonary artery branches appear to be normal. 7. The inferior vena cava is dilated, central venous pressure is most likely elevated. DOPPLER: It detects moderate mitral regurgitation, moderate tricuspid regurgitation and trace pulmonic regurgitation. The calculated pulmonary artery systolic pressure using the TR velocity is normal, but most likely under estimated. 2D COMMENTS: 1. Assessment of the left ventricular diastolic function was limited in view of the underlying arrhythmias. 2. Severe global left ventricular systolic dysfunction with a mildly enlarged left ventricle and diffuse hypokinesis. Assessment of the left ventricular diastolic dysfunction was limited in view of the underlying arrythmias. 3. Moderately enlarged left atrium with moderate mitral regurgitation and mitral annular calcification. 4. Moderate tricuspid regurgitation with enlarged right atrium. Calculated pulmonary artery systolic pressure was normal, most likely underestimated. Trace pulmonic regurgitation. 5. There are findings consistent with elevated central venous pressure, the inferior vena cava is dilated. MTDD
[2020-07-21 08:00] VITALS: BP 148/74
[2020-07-21] MEDS: POTASSIUM CHLORIDE 10 MEQ SR TABLET PO SCH ×2 (09:05→20:33)
[2020-07-21] MEDS: ENTRESTO 24-26MG TABLET (SACUBITRIL/VALSARTAN) PO SCH ×2 (09:05→20:32)
[2020-07-21] MEDS: MAGNESIUM OXIDE 400 MG TAB (MAG-OX) PO SCH ×2 (09:05→20:32)
[2020-07-21] MEDS: APIXABAN 5 MG TAB (ELIQUIS) PO SCH ×2 (09:06→20:33)
[2020-07-21] MEDS: TORSEMIDE 20 MG TAB PO SCH ×2 (09:06→17:20)
[2020-07-21] MEDS: SPIRONOLACTONE 12.5MG PER 1/2 TABLET PO SCH (09:06)
[2020-07-21] MEDS: DIGOXIN 0.125 MG TAB PO SCH (09:07)
[2020-07-21] MEDS: bisoproloL fumarate 10 MG TAB PO SCH ×2 (09:07→20:33)
--- NOTE | 2020-07-21 12:13 | IPN ---
CARDIOLOGY PROGRESS NOTE DATE: 07/19/2020 SUBJECTIVE: The patient claims to be feeling improved today, very happy with reduction in dependent edema and is not feeling short of up in the room. Remains unaware of his heart action. Denies positional lightheadedness despite his diuresis overnight with adjusted medical therapy. OBJECTIVE: Mildly overweight, tall, late middle-aged male laying comfortably with the head of the bed elevated at 30 degrees. Current heart rate 88 beats per minute and irregular. Blood pressure is 142/88 supine, 136/85 sitting with legs dependent, respiratory rate 16, O2 saturation 96% on room air. Currently afebrile. Had a negative fluid balance of 3600 mL yesterday but curiously his recorded weight actually went up. Today, he has generated a negative fluid balance of close to 2400 mL. Normal oral moisture. No central cyanosis. Trachea is midline. Neck veins have decreased to approximately 4-6 cm above the sternal angle. Improved air entry over both lung bases with reduction in inspiratory rales. Lower leg swelling has also decreased. WAREHOUSE TECHNICIAN: Remains in atrial flutter with somewhat rapid ventricular response, still with Digoxin and Bisoprolol. I have started him on amiodarone to help with rate control, not conversion to sinus rhythm in particular. BLOOD WORK: Hemoglobin slightly concentrated at 15.7 today, normal white blood cell count and platelet count. His electrolytes remain in balance except for a drop in magnesium to 1.7. Potassium did drop slightly but is normal at 3.8. Interestingly with rate control and his current medical therapy despite negative fluid balance his BUN actually dropped to 17 from 22 yesterday, creatinine remains stable. Fasting glucose 109. IMPRESSION/PLAN: 1. Atrial flutter with rapid ventricular response: As mentioned above, despite Digoxin and Bisoprolol his ventricular response was 110 up to 120 at rest. In light of this, I have added Amiodarone 200 mg q.i.d. and reduced his Digoxin dosage to 0.125 daily from 0.25 mg daily. Remains free of symptoms or sign of embolic phenomenon or hemorrhagic complication. Hemoglobin as mentioned above. 2. Heart failure (systolic and diastolic dysfunction/chronic), very impressive progress with his adjusted medical therapy with improved renal function despite a negative fluid balance. I have placed him on some potassium replacement at least for today and I have given him two doses of IV Magnesium in addition to increasing his oral magnesium oxide to 400 mg b.i.d. I have not changed his current torsemide, Entresto, or spironolactone dosages. We will continue to monitor his fluid status and chemistry with you closely. 3. PVCs: I am cautiously optimistic that this will decrease with relief of his congestive state especially with the use of amiodarone. As previously stated in light of documented poor ejection and heart failure we will have to arrange for a life vest prior to his discharge home. 4. Abnormal EKG. No repeat study performed today but remains free of chest, jaw, or arm discomfort with his low level of activity. Remains on protective combination Bisoprolol, Entresto and Eliquis or other anticoagulation. We will plan on outpatient noninvasive evaluation of his coronary prognosis. 5. Hypertensive heart disease with heart failure: Currently blood pressure has significantly improved on his combination medical therapy with renal functioning improving as mentioned above. 6. 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 I am cautiously optimistic with compensation of his heart failure the degree of insufficiency will decrease with reduction in cardiac chamber sizes. 7. Sleep disorder (unspecified): Again as mentioned, I believe it would be important to arrange for a nocturnal oximetry the day prior to his tentative discharge from the hospital as his history is very suggestive of obstructive sleep apnea. 8. I anticipate we will require at least an additional 2-3 days of EKG monitoring in the hospital. I will continue to follow him with you closely and appreciate the opportunity to participate in this care. STEPHANIE
--- NOTE | 2020-07-21 12:16 | IPN ---
CARDIOLOGY PROGRESS NOTE DATE: 07/20/2020 SUBJECTIVE: The patient has been up in the room and briefly in the lara without lightheadedness, shortness of breath, or chest discomfort. Continues to be very happy with his decreasing lower leg swelling. Tolerating his current medications without adverse affect. OBJECTIVE: GENERAL APPEARANCE: Tall, bright, pleasant, middle aged male laying comfortably with the head of the bed elevated 30 degrees. VITAL SIGNS: Heart rate 94 beats per minute and regular with irregularities. Blood pressure 132/82 supine, 128/78 sitting with legs bent, O2 saturation 94% on room air. Respiratory rate 16. Afebrile. Weight 197.5 pounds. He is down more than 10 pounds since his admission. Negative fluid balance yesterday of more than 2 liters. HEENT: No pallor or cyanosis. No oral moisture. Trachea midline. NECK: Veins currently 6 cm above the sternal angle. LUNGS: Few bibasilar inspiratory rales, clear with a deep breath. EXTREMITIES: Lower leg swelling now only one-half the way up both lower legs, one mm. VIDEO PRODUCTION ENGINEER: Sustained atrial flutter with controlled ventricular response, usually in the 80s or 90s at this time. Continues to have isolated PVCs. No more complex or symptomatic arrhythmia. EKG: Tracing today was reviewed independently and again shows underlying atrial flutter with controlled ventricular response averaging 93 beats per minute. Frequent, isolated unifocal PVCs. Left axis deviation. Reduced limb voltage with poor precordial R-wave progression in keeping with body habitus versus pulmonary disease. Cannot rule out a prior septal infarction. ST-T wave abnormalities not significantly changed from July 17, 2020. BLOOD WORK: Hemoglobin today 16.8 with normal white blood cell count and platelet count. Electrolytes were in balance with potassium of 3.9, magnesium 2.1, BUN essentially stable at 18, creatinine slightly up to 1.07. Fasting glucose 107. IMPRESSION/PLAN: 1. Atrial flutter with rapid ventricular response finally his ventricular response is now controlled with combination Digoxin, Bisoprolol, and Amiodarone. We are hoping at this time to simply his regimen and will switch his Bisoprolol to 10 mg twice daily. His Amiodarone will be switched to 200 mg four times daily, hold for heart rate less than 90 beats per minute. Continues on the same Eliquis, 5 mg twice daily. 2. Heart failure (systolic and diastolic dysfunction/chronic) continues to make excellent progress with gradually resolving symptoms and signs of congestion. He does not have an orthostatic drop in his blood pressure and neck veins remain slightly elevated. Chemistry confirms electrolyte balance with essentially stable, normal renal function. At this point no change has been made to his combination Digoxin, Entresto, Torsemide or Spironolactone. At the time of his discharge, it is unlikely he is going to require this dosage of Torsemide. 3. PVCs continues to have frequent, isolated, low grade ventricular ectopic activity that is asymptomatic. I am cautiously optimistic this will improve with his Amiodarone. As previously mentioned, we will try to arrange for him to have a life vest fitted prior to his discharge home. 4. Abnormal EKG has remained free of symptomatic myocardial ischemia. Currently on protective combination beta lyssa, Bisoprolol, Entresto, and Eliquis. We will plan on either a treadmill or pharmacological stress heart scan soon after he is discharged from hospital. 5. Hypertensive heart disease (benign with heart failure) - blood pressure remains well controlled on his current combination therapy with electrolyte balance and normal renal function. 6. Mitral valve disorder (nonrheumatic) has no audible systolic murmur displayed on his EKG. As previously mentioned, we are hoping that his mitral insufficiency and tricuspid insufficiency will virtually disappear with compensation of his heart failure and hopefully reduction in left and right ventricular chamber sizes. Remains free of symptom or sign of endocarditis. 7. Sleep disturbance (unspecified) as previously mentioned, his right ventricular failure appeared to be more evident than his left and he describes symptoms to suggest sleep apnea. A screening nocturnal oximetry will be arranged for this evening. I am cautiously optimistic that he will be able to be discharged either later tomorrow or the next day. STEPHANIE
[2020-07-21] MEDS ORDERED: ENTR1TAB PO (14:07)
[2020-07-21 16:00] VITALS: BP 130/60
--- NOTE | 2020-07-21 16:43 | IPNPDOC ---
Subjective Date Seen The patient was seen on 07/21/20. Subjective Chief Complaint/HPI Mr. Sahni is a 65 year old male here with atrial fibrillation with RVR and CHF. Overnight, he had nocturnal pulse oximetry. This morning, he denies any fever/chills, chest pain, dyspnea, abdominal pain, or dysuria Objective Physical Examination General Exam: Positive: Alert, Cooperative Eye Exam: Positive: EOMI; Negative: Sclera icteric ENT Exam: Positive: Atraumatic Neck Exam: Positive: Supple Chest Exam: Positive: Clear to auscultation; Negative: Rales, Rhonchi, Wheezing Heart Exam: Positive: Tachycardic, Irregular Rhythm Abdomen Exam: Positive: Normal bowel sounds, Soft; Negative: Tenderness Extremity Exam: Negative: Clubbing, Cyanosis Neuro Exam: Positive: Cranial Nerves 3-12 NL Psych Exam: Positive: Mental status NL, Mood NL Assessment /Plan Assessment Mr. Sahni is a 65 year old male here with atrial flutter with rapid response. Cardiology following, recommendations appreciated. Heart rate better controlled with Digoxin, Amiodarone, and Bisoprolol. Still requires diuresis with BID torsemide and spironolactone. Will need continued monitoring while being diuresed as he is on new cardiac medication Plan/VTE VTE Prophylaxis Ordered?: Yes Plan 1. Atrial flutter with rapid ventricular response -Cardiology following, recommendations appreciated -Continue with amiodarone, BB, and digoxin -AC with apixaban -Rate better controlled 2. Chronic CHF with decreased EF -Echocardiogram performed on 07/17/2020 -EF of 10 to 20% with global hypokinesis -Being diuresed on Torsemide and spironolactone -Continue Sacubitril/Valsartan and Atenolol 3. Hypomagnesium -Electrolytes being monitored and replenished. -Resolved 4. DVT ppx -On Apixaban VS, I&O, 24H, Fishbone Vital Signs/I&O Vital Signs Date Time Temp Pulse Resp B/P (MAP) Pulse Ox O2 Delivery O2 Flow Rate FiO2 07/21/20 09:07 81 148/74 07/21/20 08:00 97.3 17 96 Room Air 07/18/20 04:00 2.0 I&O- Last 24 Hours up to 6 AM 07/21/20 05:59 Intake Total 720 ml Output Total 3100 ml Balance -2380 ml Laboratory Data 24H LABS Laboratory Tests 2 07/21/20 04:58: Immature Granulocyte % (Auto) 0.4, Neutrophils (%) (Auto) 55.7, Lymphocytes (%) (Auto) 26.0, Monocytes (%) (Auto) 14.3H, Eosinophils (%) (Auto) 2.9, Basophils (%) (Auto) 0.7, Neutrophils # (Auto) 4.5, Lymphocytes # (Auto) 2.1, Monocytes # (Auto) 1.2H, Eosinophils # (Auto) 0.2, Basophils # (Auto) 0.1, Nucleated Red Blood Cells % (auto) 0.0, Anion Gap 7L, Glomerular Filtration Rate > 60.0, Calcium Level 9.0, Magnesium Level 2.2 CBC/BMP Laboratory Tests 07/21/20 04:58 NANCY ROCA DO Jul 21, 2020 15:16
[2020-07-21 20:00] VITALS: BP_SYST 118; BP_SYST 188; BP_DIAS 64
[2020-07-22] VITALS: BP 151/76
[2020-07-22 04:00] VITALS: BP 109/67
[2020-07-22 05:59] LABS: BASO # 0.1 10^3/uL (0.0-0.2); BASO % 1.1 % (0.0-1.0); EOS # 0.3 10^3/uL (0.0-0.5); EOS % 3.4 % (0.0-3.0); HEMATOCRIT 57.5 % (42.0-52.0); HEMOGLOBIN 18.7 g/dl (13.5-17.5); LYMPH # 2.8 10^3/uL (1.5-5.0); LYMPH % 29.1 % (24.0-44.0); MEAN CORPUSCULAR HEMOGLOBIN 30.4 pg (27.0-33.0); MEAN CORPUSCULAR HGB CONC 32.5 g/dl (32.0-36.5); MEAN CORPUSCULAR VOLUME 93.3 fl (80.0-96.0); MONO # 1.2 10^3/uL (0.0-0.8); MONO % 12.7 % (0.0-5.0); NEUTROPHILS # 5.1 10^3/uL (1.5-8.5); NEUTROPHILS % 53.3 % (36.0-66.0); PLATELET COUNT, AUTOMATED 336 10^3/uL (150-450); RED BLOOD COUNT 6.16 10^6/uL (4.30-6.10); WHITE BLOOD COUNT 9.6 10^3/uL (4.0-10.0)
[2020-07-22] MEDS: AMIODARONE 200 MG TAB (PACERONE) PO SCH ×3 (06:00→12:00)
[2020-07-22 06:35] LABS: CALCIUM LEVEL 9.7 MG/DL (8.8-10.2); CREATININE FOR GFR 1.29 MG/DL (0.70-1.30); GLOMERULAR FILTRATION RATE 59.1 (>49); MAGNESIUM LEVEL 2.5 MG/DL (1.8-2.4); POTASSIUM SERUM 4.5 MEQ/L (3.5-5.1)
[2020-07-22 08:00] VITALS: BP 114/72
[2020-07-22] MEDS: APIXABAN 5 MG TAB (ELIQUIS) PO SCH (08:38)
[2020-07-22] MEDS: DIGOXIN 0.125 MG TAB PO SCH (08:38)
[2020-07-22] MEDS: ENTRESTO 24-26MG TABLET (SACUBITRIL/VALSARTAN) PO SCH (08:38)
[2020-07-22 08:39] VITALS: BP 114/72
[2020-07-22] MEDS: SPIRONOLACTONE 12.5MG PER 1/2 TABLET PO SCH (08:39)
[2020-07-22] MEDS: bisoproloL fumarate 10 MG TAB PO SCH (08:39)
--- NOTE | 2020-07-22 09:15 | IPN ---
"CARDIOLOGY PROGRESS NOTE DATE: 07/21/2020 SUBJECTIVE: The patient has been up in the room again doing extremely well. Has virtually no pedal edema, he claims. He is tolerating his medications without adverse affect. | OBJECTIVE: GENERAL APPEARANCE: Pleasant, tall middle aged male lying comfortably. VITAL SIGNS: Heart rate currently 96 beats per minute and irregular. Blood pressure 128 systolic, dropping to 124 systolic, sitting with legs dependent. O2 saturation 97% on room air. Respiratory rate 17 per minute, afebrile. Weight today 197.5 pounds, similar to yesterdays weight, but negative fluid balance recorded at 1,500 mL yesterday. NECK: Veins currently 2-3 cm above the sternal angle. EXTREMITIES: Has no more than +/- pitting edema one-third up both ankles. 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 BLOOD WORK: Hemoglobin 17.6 today. Normal white blood cell count and platelet count. Electrolytes were in balance with potassium 4.3 today. Bicarbonate remains normal. Magnesium was 2.2. BUN slightly higher than yesterday at 19 with creatinine stable at 1.0. Fasting glucose was 105. IMPRESSION/PLAN: 1. Atrial flutter with rapid ventricular response continues to have a controlled ventricular rate now with Digoxin 0.125 mg p.o. daily and Bisoprolol 10 mg twice daily. His Amiodarone has been held for heart rate less than 90 but he has still received 2 doses today. At the time of his discharge we will probably maintain Amiodarone at 200 mg twice daily. His Eliquis of course will continue 5 mg twice daily. 2. Heart failure (systolic and diastolic dysfunction/chronic) has made excellent progress. I intend to withhold his Torsemide at this point, and will reassess the need for diuretic therapy tomorrow morning, but I suspect we will be able to get away with a smaller does, perhaps 10 mg daily. He will need to maintain a modest salt and fluid intake restriction and should be encouraged to weigh himself daily and promptly report a weight gain of more than 2 pounds in 24 hours or 4 pounds in one week to our office. At this point he will be on Entresto 24-26 one tablet twice daily and Spironolactone 12.5 mg daily with his Digoxin and Torsemide as we suggested above. 3. PVCs still having fairly frequent isolated but asymptomatic PVCs. I am still convinced his Amiodarone will be able to deal with these. The paperwork for his life vest has been completed and [employer] should be outfitting him for a possible discharge tomorrow. 4. Abnormal EKG continues to be free of any effort related chest, jaw or arm or discomfort. He is going to be on protective beta lyssa, Entresto and Eliquis. As mentioned, we will arrange for non-invasive testing as an outpatient in the near future through our office. 5. Hypertensive heart disease (benign with heart failure) - blood pressure is well controlled on his combination medical therapy with electrolyte balance and normal renal function. With his reduced Torsemide, I doubt he will require magnesium or potassium supplement with the combination of his Entresto and Spironolactone. 6. Mitral and tricuspid valve disorder (non rheumatic) continues to be free of any audible murmur. No need for any specific care restrictions. Optimal management of his heart failure and blood pressure would be martin therapy. Does not require SPE, antibiotic prophylaxis. 7. Sleep disturbance (unspecified) Sleep study or nocturnal oximetry was requested yesterday. The official report is pending. We are very suspicious that he does have obstructive sleep apnea that has contributed to his pulmonary hypertension. 8. I am cautiously optimistic he will be able to be discharged tomorrow as mentioned above, and will arrange for a follow up clinic visit/CHF check in one weeks time. He will continue to wear the life vest until we are able to obtain a follow up echocardiogram showing substantial improvement in his ejection fraction. Should his ejection fraction remain less than 35% , he would be a candidate for implantable cardioverter defibrillator for primary prevention of sudden . STEPHANIE"
[2020-07-22] MEDS ORDERED: BISO10TA13 PO (09:37)
[2020-07-22] MEDS ORDERED: TORS10TA3 PO (09:37)
[2020-07-22] MEDS ORDERED: DIGO0.123 PO (09:37)
[2020-07-22] MEDS ORDERED: AMIO200T3 PO (09:37)
--- NOTE | 2020-07-22 10:25 | NOCOX ---
DATE: 07/20/2020 ORDERED BY: Dr. Mazariegos. Study was performed on room air. Study of excellent technical quality. Mean oxygen saturation for the study 91.9%. Lowest reliably recorded oxygen saturation briefly at 85%. Marked variability throughout the study is noted in a pattern much more suggestive of Warner-Fernandez respirations. Marked variability in heart rate is identified as well. No significant prolonged oxygen desaturations were identified. IMPRESSION: Abnormal nocturnal oximetry raising a question of cardiac arrhythmia and Warner- Fernandez respirations. Please correlate clinically. MTDD
--- NOTE | 2020-07-22 20:35 | DS.PDOC ---
Discharge Summary General Date of Admission Jul 17, 2020 at 10:13 Date of Discharge Jul 22, 2020 Attending Physician: NANCY ROCA DO Specialist/Consultants [facility], Dr. Lopez Discharge Summary PROCEDURES PERFORMED DURING STAY: Echocardiogram ADMITTING DIAGNOSES: 1. Atrial flutter with rapid ventricular response 2. Cardiomyopathy DISCHARGE DIAGNOSES: 1. Atrial flutter with rapid ventricular response 2. Chronic systolic congestive heart failure 3. Hypomagnesemia COMPLICATIONS/CHIEF COMPLAINT: Atrial Flutter With Rapid Ventricular Response. HISTORY OF PRESENT ILLNESS: Mr. Sahni is a 65-year-old male who presented to the ED for abnormal EKG from PCPs office. Patient has been having shortness of breath on exertion for the past 3 weeks. He has also had bilateral swelling of the legs extending up to the knee. He denies any orthopnea. HOSPITAL COURSE: Cardiology was consulted. His atrial flutter with rapid ventricular response required atenolol, digoxin, and amiodarone. Patient was also started on apixaban for stroke prophylaxis. During this time, his echocardiogram demonstrated an EF of 10-20% with global hypokinesis. Patient was diuresed with spironolactone and torsemide and started on Entresto. Patient electrolytes were closely monitored. Otherwise, patient was fitted for a LifeVest. This morning, the patient was feeling well. Denied any fever or chills, lightheadedness or dizziness, chest pain, dyspnea, abdominal pain, dysur ia or diarrhea. He was sent home on a 2 g sodium diet with 1500 mL fluid restriction. He is given instructions to weigh himself in the morning without close after his first void. If he gains more than 2 pounds over his baseline weight, he is to take one dose of torsemide. Patient was subsequently discharged home with his LifeVest DISCHARGE MEDICATIONS: Please see below. ALLERGIES: Please see below. PHYSICAL EXAMINATION ON DISCHARGE: VITAL SIGNS: Please see below. GENERAL: Comfortable, in no apparent distress. HEENT: Head normocephalic/atraumatic, EOMI, sclera clear. NECK: Supple RESPIRATORY: Lungs clear to auscultation bilaterally, no rales, wheeze or rhonchi. CARDIOVASCULAR: Regular rate and rhythm. ABDOMEN: Soft, nontender, no guarding or rebound tenderness. Normal bowel sounds. MUSCLE SKELETAL: Muscle strength 5/5 in all extremities. NEUROLOGICAL: CN 312 grossly intact, no focal deficits noted. PSYCHOLOGICAL: Normal mood and affect LABORATORY DATA: Please see below. IMAGING: Chest x-ray Mild right base atelectasis/infiltrate.Mild cardiomegaly. X-ray knee, left No fracture or dislocation. Moderate degenerative changes. PROGNOSIS: Stable ACTIVITY: As tolerated DIET: 2 g sodium diet, 1500 mL fluid restriction DISCHARGE PLAN: Home DISPOSITION: Home, Self-Care. DISCHARGE INSTRUCTIONS: 1. Follow-up with her PCP within a week 2. Follow-up with cardiology, Dr. Lopez, within a week DISCHARGE CONDITION: Stable. Total time spent on discharge planning, discharge summary, medication reconciliation: 35 minutes Vital Signs/I&Os Vital Signs Date Time Temp Pulse Resp B/P (MAP) Pulse Ox O2 Delivery O2 Flow Rate FiO2 07/22/20 08:39 78 114/72 07/22/20 08:00 97.4 20 93 Room Air 07/18/20 04:00 2.0 I&O- Last 24 Hours up to 6 AM 07/22/20 06:00 Intake Total 300 ml Output Total 1700 ml Balance -1400 ml Laboratory Data Labs 24H Laboratory Tests 2 07/22/20 05:30: Immature Granulocyte % (Auto) 0.4, Neutrophils (%) (Auto) 53.3, Lymphocytes (%) (Auto) 29.1, Monocytes (%) (Auto) 12.7H, Eosinophils (%) (Auto) 3.4H, Basophils (%) (Auto) 1.1H, Neutrophils # (Auto) 5.1, Lymphocytes # (Auto) 2.8, Monocytes # (Auto) 1.2H, Eosinophils # (Auto) 0.3, Basophils # (Auto) 0.1, Nucleated Red Blood Cells % (auto) 0.0, Anion Gap 5L, Glomerular Filtration Rate 59.1, Calcium Level 9.7, Magnesium Level 2.5H CBC/BMP Laboratory Tests 07/22/20 05:30 Discharge Medications Scheduled Amiodarone HCl (Amiodarone HCl) 200 Mg Tablet, 200 MG PO BID Apixaban (Eliquis) 5 Mg Tablet, 5 MG PO BID Bisoprolol Fumarate (Bisoprolol Fumarate) 10 Mg Tablet, 10 MG PO BID Digoxin (Digoxin) 125 Mcg Tablet, 0.125 MG PO DAILY Sacubitril/Valsartan (Entresto 24 mg-26 mg Tablet) 1 Each Tablet, 1 TAB PO BID Scheduled PRN Torsemide (Torsemide) 10 Mg Tablet, 10 MG PO DAILY PRN for weight gain If weight gain >2 lbs, take once a day Allergies Coded Allergies: No Known Allergies (Unverified , 07/17/20) NANCY ROCA DO Jul 22, 2020 20:35
== END 2020-07-22 13:42 | disposition home or self-care (01) | DRG 309 ==
LOC: M ED 07:25 → M ED INP 10:13 → ENRESERV 10:34 → M ICU 12:09 → M PCU 07-19 10:27
PROVIDERS: ADMIT Internal Medicine; ATTEND Internal Medicine
DX: I48.92 Unspecified atrial flutter (principal); J98.11 Atelectasis; I50.42 Chronic combined systolic (congestive) and diastolic (congestive) heart failure; I11.0 Hypertensive heart disease with heart failure; E83.42 Hypomagnesemia; Z79.899 Other long term (current) drug therapy; G47.00 Insomnia, unspecified; I42.9 Cardiomyopathy, unspecified

== ENCOUNTER → 2020-07-17 | Outpatient (CLI) | payer MEDICARE ==
--- NOTE | 2020-07-17 17:45 | ECGEPIP ---
[facility] Test Date: 2020-07-17 Pat Name: GRAYSON MASTERSON Department: Room: - Gender: Male Radiology Specialist: NISSA : 1955 Requested By: Lynne Hein Order Number: [id number] Reading MD: Art Lopez Measurements Intervals [place] Rate: 142 P: [place]: 0 QRS: 41 QRSD: 98 T: 69 QT: 298 QTc: 459 Interpretive Statements Underlying atrial flutter with 2: 1 AV response. Frequent isolated PVCs and one ventricular couplet Low limb voltages with slow precordial R wave progression; body habitus versus pulmonary disease. Rule out prior septal infarction Prominent precordial voltage with lateral ST/T wave abnormalities; probable LVH. No prior tracing for comparison. Clincal correlation advised Electronically Signed on 07-17-2020 17:45:18 EDT by Art Lopez
== END ==
LOC: M EKG 06:10
PROVIDERS: ATTEND Family Medicine
DX: I10 Essential (primary) hypertension (principal); E03.9 Hypothyroidism, unspecified

== ENCOUNTER → 2020-07-27 | Outpatient (CLI) | payer MEDICARE ==
[~2020-07-27] MED LIST changes: +AMIO200T3 PO; +BISO10TA13 PO; +DIGO0.123 PO; +TORS10TA3 PO
[2020-07-27 16:30] LABS: HEMATOCRIT 53.7 % (42.0-52.0); HEMOGLOBIN 17.2 g/dl (13.5-17.5); MEAN CORPUSCULAR HEMOGLOBIN 30.1 pg (27.0-33.0); PLATELET COUNT, AUTOMATED 324 10^3/uL (150-450); RED BLOOD COUNT 5.71 10^6/uL (4.30-6.10); WHITE BLOOD COUNT 8.3 10^3/uL (4.0-10.0)
[2020-07-27 16:50] LABS: ALBUMIN 3.8 GM/DL (3.2-5.2); BLOOD UREA NITROGEN 33 MG/DL (7-18); CALCIUM LEVEL 10.1 MG/DL (8.8-10.2); CARBON DIOXIDE LEVEL 32 MEQ/L (21-32); CHLORIDE LEVEL 106 MEQ/L (98-107); GLOMERULAR FILTRATION RATE > 60.0 (>49); GLUCOSE, FASTING 125 MG/DL (70-100); NT-PRO BNP 786 PG/ML (<125); PHOSPHORUS LEVEL 3.5 MG/DL (2.5-4.9); POTASSIUM SERUM 5.2 MEQ/L (3.5-5.1); SODIUM LEVEL 139 MEQ/L (136-145)
== END ==
LOC: M WUC 13:51
PROVIDERS: ATTEND Internal Medicine Cardiovascular Disease
DX: I48.3 Typical atrial flutter (principal); I11.0 Hypertensive heart disease with heart failure; I50.42 Chronic combined systolic (congestive) and diastolic (congestive) heart failure

== ENCOUNTER → 2021-04-03 | Outpatient (CLI) | payer MEDICARE ==
[2021-04-03 08:20] LABS: HEMATOCRIT 40.7 % (42.0-52.0); HEMOGLOBIN 13.5 g/dl (13.5-17.5); MEAN CORPUSCULAR HEMOGLOBIN 31.7 pg (27.0-33.0); MEAN CORPUSCULAR HGB CONC 33.2 g/dl (32.0-36.5); MEAN CORPUSCULAR VOLUME 95.5 fl (80.0-96.0); PLATELET COUNT, AUTOMATED 250 10^3/uL (150-450); RED BLOOD COUNT 4.26 10^6/uL (4.30-6.10); WHITE BLOOD COUNT 7.9 10^3/uL (4.0-10.0)
[2021-04-03 08:55] LABS: ALBUMIN 3.8 GM/DL (3.2-5.2); ALT/SGPT 37 U/L (12-78); BILIRUBIN,TOTAL 0.5 MG/DL (0.2-1.0); BLOOD UREA NITROGEN 26 MG/DL (7-18); CALCIUM LEVEL 9.1 MG/DL (8.8-10.2); CARBON DIOXIDE LEVEL 28 MEQ/L (21-32); CHLORIDE LEVEL 108 MEQ/L (98-107); CREATININE FOR GFR 0.92 MG/DL (0.70-1.30); GLOMERULAR FILTRATION RATE > 60.0 (>49); GLUCOSE, FASTING 108 MG/DL (70-100); NT-PRO BNP 53 PG/ML (<125); POTASSIUM SERUM 4.6 MEQ/L (3.5-5.1); SODIUM LEVEL 141 MEQ/L (136-145)
== END ==
LOC: M LAB 08:02
PROVIDERS: ATTEND Internal Medicine Cardiovascular Disease
DX: I50.32 Chronic diastolic (congestive) heart failure (principal); I48.3 Typical atrial flutter

== ENCOUNTER → 2021-04-15 | Outpatient (CLI) | payer MEDICARE ==
--- NOTE | 2021-04-19 18:14 | SLEEPHOME ---
DATE: 04/15/2021 DIAGNOSTIC HOME SLEEP TEST ORDERED BY: Art Lopez MD Diagnostic home sleep testing was performed due to concern for the obstructive sleep apnea syndrome in this patient with a history of cor pulmonale. Ten hours and 33 minutes of data were reviewed. There were 7 hours and 1 minute identified as time in bed. During the interval marked time in bed, there were 87 respiratory events identified of 10 seconds in duration or greater for a respiratory event index of 12.4. The events were obstructive. Baseline pulse rate was 49. Pulse rate ranged 40 to 58. Baseline saturation was 92%. Saturations fell to 81% and testing was performed in both the supine and nonsupine positions. IMPRESSION: Abnormal home sleep testing with repetitive respiratory events and oxygen desaturations to 81% with a respiratory event index of 12.4 is consistent with the obstructive sleep apnea syndrome. RECOMMENDATION: The patient should be encouraged to undergo a formal sleep evaluation.
== END ==
LOC: M SLEEP HO 11:09
PROVIDERS: ATTEND Internal Medicine Cardiovascular Disease
DX: I27.81 Cor pulmonale (chronic) (principal)

== ENCOUNTER → 2021-10-06 | Outpatient (CLI) | payer MEDICARE ==
[~2021-10-06] MED LIST changes: -AMIO200T3 PO; +AMIO200T49 PO
[2021-10-06 13:30] LABS: BASO % 0.5 % (0.0-1.0); EOS # 0.1 10^3/uL (0.0-0.5); EOS % 1.5 % (0.0-3.0); HEMATOCRIT 43.9 % (42.0-52.0); HEMOGLOBIN 14.2 g/dl (13.5-17.5); LYMPH # 1.3 10^3/uL (1.5-5.0); LYMPH % 15.6 % (24.0-44.0); MEAN CORPUSCULAR HEMOGLOBIN 31.4 pg (27.0-33.0); MEAN CORPUSCULAR HGB CONC 32.3 g/dl (32.0-36.5); MEAN CORPUSCULAR VOLUME 97.1 fl (80.0-96.0); MONO # 0.7 10^3/uL (0.0-0.8); MONO % 8.5 % (2.0-8.0); NEUTROPHILS # 5.9 10^3/uL (1.5-8.5); NEUTROPHILS % 73.2 % (36.0-66.0); PLATELET COUNT, AUTOMATED 274 10^3/uL (150-450); RED BLOOD COUNT 4.52 10^6/uL (4.30-6.10)
[2021-10-06 15:29] LABS: ALBUMIN 4.3 GM/DL (3.2-5.2); ALT/SGPT 29 U/L (12-78); BILIRUBIN,TOTAL 0.6 MG/DL (0.2-1.0); BLOOD UREA NITROGEN 20 MG/DL (7-18); CALCIUM LEVEL 9.9 MG/DL (8.8-10.2); CARBON DIOXIDE LEVEL 28 MEQ/L (21-32); CHLORIDE LEVEL 107 MEQ/L (98-107); CREATININE FOR GFR 0.86 MG/DL (0.70-1.30); GLOMERULAR FILTRATION RATE > 60.0 (>49); GLUCOSE, FASTING 105 MG/DL (70-100); POTASSIUM SERUM 4.6 MEQ/L (3.5-5.1); SODIUM LEVEL 140 MEQ/L (136-145); THYROID STIMULATING HORMONE 0.668 uIU/ML (0.358-3.740); TOTAL PROTEIN 7.6 GM/DL (6.4-8.2)
== END ==
LOC: M WUC 09:59
PROVIDERS: ATTEND Internal Medicine Cardiovascular Disease
DX: I48.3 Typical atrial flutter (principal); I50.32 Chronic diastolic (congestive) heart failure; I34.0 Nonrheumatic mitral (valve) insufficiency; I11.0 Hypertensive heart disease with heart failure

== ENCOUNTER → 2021-10-25 | Outpatient (REF) | payer MEDICARE, OTHER | LOC: M LAB REF 18:16 | PROVIDERS: ATTEND Physician Assistant | DX: C44.329 Squamous cell carcinoma of skin of other parts of face (principal) ==

== ENCOUNTER → 2021-12-14 | Outpatient (CLI) | payer MEDICARE, OTHER ==
[~2021-12-14] MED LIST changes: +CARV6.25 PO; +CHLO125TA PO; +ENTR1TAB7 PO; +ISOVUE-370 76% 100ML VIAL As Ordered ONE
[2021-12-14 08:24] LABS: ALT/SGPT 25 U/L (12-78); BILIRUBIN,TOTAL 0.7 MG/DL (0.2-1.0); BLOOD UREA NITROGEN 23 MG/DL (7-18); CALCIUM LEVEL 9.9 MG/DL (8.8-10.2); CARBON DIOXIDE LEVEL 31 MEQ/L (21-32); CHLORIDE LEVEL 107 MEQ/L (98-107); CREATININE FOR GFR 0.98 MG/DL (0.70-1.30); GLOMERULAR FILTRATION RATE > 60.0 (>49); GLUCOSE, FASTING 116 MG/DL (70-100); POTASSIUM SERUM 4.7 MEQ/L (3.5-5.1); SODIUM LEVEL 143 MEQ/L (136-145); TOTAL PROTEIN 7.3 GM/DL (6.4-8.2)
== END ==
LOC: M LAB 07:35
PROVIDERS: ATTEND Dermatology
DX: C44.329 Squamous cell carcinoma of skin of other parts of face (principal); R93.0 Abnormal findings on diagnostic imaging of skull and head, not elsewhere classified
CPT/HCPCS: 36415; 70470; 70491; 80053; Q9967

== ENCOUNTER → 2021-12-29 | Outpatient (CLI) | payer MEDICARE, OTHER ==
[~2021-12-29] MED LIST changes: -ISOVUE-370 76% 100ML VIAL As Ordered ONE
== END ==
LOC: M ONCR 13:42
PROVIDERS: ATTEND General Practice
DX: C44.329 Squamous cell carcinoma of skin of other parts of face (principal)

== ENCOUNTER 2022-01-11 10:30 | Outpatient (RCR) | payer MEDICARE, OTHER | END 2022-01-15 | LOC: M ONCR 10:30 | PROVIDERS: ATTEND General Practice | DX: C44.320 Squamous cell carcinoma of skin of unspecified parts of face (principal) ==

== ENCOUNTER → 2022-02-15 | Outpatient (RCR) | payer MEDICARE, OTHER | LOC: M ONCR 01-17 11:34 | PROVIDERS: ATTEND General Practice | DX: C44.320 Squamous cell carcinoma of skin of unspecified parts of face (principal) ==

== ENCOUNTER → 2022-03-17 | Outpatient (CLI) | payer MEDICARE ==
[~2022-03-17] MED LIST changes: +TRIA1CR80 TOP
== END ==
LOC: M ONCR 09:13
PROVIDERS: ATTEND General Practice
DX: C44.329 Squamous cell carcinoma of skin of other parts of face (principal); R23.8 Other skin changes; Z92.3 Personal history of irradiation

== ENCOUNTER → 2022-07-26 | Outpatient (CLI) | payer MEDICARE ==
[2022-07-26 11:42] LABS: HEMATOCRIT 39.6 % (42.0-52.0); HEMOGLOBIN 12.4 g/dl (13.5-17.5); MEAN CORPUSCULAR HEMOGLOBIN 30.2 pg (27.0-33.0); MEAN CORPUSCULAR HGB CONC 31.3 g/dl (32.0-36.5); MEAN CORPUSCULAR VOLUME 96.4 fl (80.0-96.0); PLATELET COUNT, AUTOMATED 301 10^3/uL (150-450); RED BLOOD COUNT 4.11 10^6/uL (4.30-6.10); WHITE BLOOD COUNT 8.8 10^3/uL (4.0-10.0)
[2022-07-26 14:44] LABS: ALBUMIN 3.6 GM/DL (3.2-5.2); ALT/SGPT 32 U/L (12-78); BILIRUBIN,TOTAL 0.4 MG/DL (0.2-1.0); BLOOD UREA NITROGEN 19 MG/DL (7-18); CALCIUM LEVEL 9.4 MG/DL (8.8-10.2); CARBON DIOXIDE LEVEL 27 MEQ/L (21-32); CHLORIDE LEVEL 104 MEQ/L (98-107); CREATININE FOR GFR 0.95 MG/DL (0.70-1.30); GLOMERULAR FILTRATION RATE > 60.0 (>49); GLUCOSE, FASTING 116 MG/DL (70-100); NT-PRO BNP 89 PG/ML (<125); POTASSIUM SERUM 4.9 MEQ/L (3.5-5.1); SODIUM LEVEL 138 MEQ/L (136-145); THYROID STIMULATING HORMONE 0.692 uIU/ML (0.358-3.740); TOTAL PROTEIN 7.1 GM/DL (6.4-8.2)
== END ==
LOC: M WUC 08:07
PROVIDERS: ATTEND Internal Medicine Cardiovascular Disease
DX: I50.32 Chronic diastolic (congestive) heart failure (principal); I48.3 Typical atrial flutter; I11.0 Hypertensive heart disease with heart failure

== ENCOUNTER → 2023-01-16 | Outpatient (CLI) | payer MEDICARE ==
[2023-01-16 10:04] LABS: HEMATOCRIT 38.4 % (42.0-52.0); HEMOGLOBIN 12.3 g/dl (13.5-17.5); MEAN CORPUSCULAR HEMOGLOBIN 31.4 pg (27.0-33.0); PLATELET COUNT, AUTOMATED 294 10^3/uL (150-450); RED BLOOD COUNT 3.92 10^6/uL (4.30-6.10); WHITE BLOOD COUNT 8.3 10^3/uL (4.0-10.0)
[2023-01-16 10:42] LABS: ALBUMIN 3.5 G/DL (3.2-5.2); ALKALINE PHOSPHATASE 96 U/L (46-116); ALT/SGPT 20 U/L (7.0-40); AST/SGOT 19 U/L (<34); BILIRUBIN,TOTAL 0.5 MG/DL (0.3-1.2); BLOOD UREA NITROGEN 26 MG/DL (9-23); CALCIUM LEVEL 9.6 MG/DL (8.3-10.6); CARBON DIOXIDE LEVEL 30 MMOL/L (20-31); CHLORIDE LEVEL 106 MMOL/L (98-107); CREATININE FOR GFR 0.83 MG/DL (0.70-1.30); GLOMERULAR FILTRATION RATE > 60.0 (>49); GLUCOSE, FASTING 88 MG/DL (74-106); POTASSIUM SERUM 6.3 MMOL/L (3.5-5.1); SODIUM LEVEL 139 MMOL/L (136-145); THYROID STIMULATING HORMONE 0.072 uIU/ML (0.55-4.78); TOTAL PROTEIN 6.8 G/DL (5.7-8.2)
== END ==
LOC: M WUC 08:06
PROVIDERS: ATTEND Internal Medicine Cardiovascular Disease
DX: I50.32 Chronic diastolic (congestive) heart failure (principal); I48.3 Typical atrial flutter; I11.0 Hypertensive heart disease with heart failure

== ENCOUNTER → 2023-01-16 | Outpatient (CLI) | payer MEDICARE | LOC: M LAB 16:34 | PROVIDERS: ATTEND Internal Medicine Cardiovascular Disease | DX: E87.5 Hyperkalemia (principal) ==

== ENCOUNTER 2023-01-31 14:54 | Day surgery (SDC) | payer MEDICARE ==
[~2023-01-31] VITALS: Ht 182.9 cm; Wt 91.6 kg
[~2023-01-31 14:54] MED LIST changes: +LR 1,000 ML IV SCH; +ceFAZolin SOD 2 GM in IV 1 EA IV ONE
[2023-01-31] MEDS ORDERED: LR 1,000 ML IV SCH (15:25)
[2023-01-31] MEDS ORDERED: propofoL 200 MG/20 ML VIAL As Ordered ONE (16:08)
[2023-01-31] MEDS ORDERED: LIDOCAINE 2% 100MG/5ML SDV (FOR ANES.) As Ordered ONE (16:08)
[2023-01-31] MEDS ORDERED: fentaNYL 100 MCG/2 ML INJECTION As Ordered ONE (16:08)
[2023-01-31] MEDS ORDERED: MIDAZOLAM INJ 2MG/2ML VIAL As Ordered ONE (16:09)
[2023-01-31] MEDS ORDERED: LIDOCAINE 1% SDV 30ML VIAL As Ordered ONE (16:22)
[2023-01-31 17:10] VITALS: BP 140/67
== END 2023-01-31 17:19 | disposition home or self-care (01) ==
LOC: M SDC 14:54
PROVIDERS: ATTEND Internal Medicine Cardiovascular Disease
DX: I48.0 Paroxysmal atrial fibrillation (principal); E06.4 Drug-induced thyroiditis; I10 Essential (primary) hypertension; G47.33 Obstructive sleep apnea (adult) (pediatric); Z92.3 Personal history of irradiation; Z79.01 Long term (current) use of anticoagulants; Z87.891 Personal history of nicotine dependence
CPT/HCPCS: 33285; C1764; J2250; J3010

== ENCOUNTER → 2023-08-14 | Outpatient (CLI) | payer MEDICARE ==
[~2023-08-14] MED LIST changes: -LR 1,000 ML IV SCH; -ceFAZolin SOD 2 GM in IV 1 EA IV ONE
[2023-08-14 13:07] LABS: BASO # 0.1 10^3/uL (0.0-0.2); BASO % 0.7 % (0.0-1.0); EOS # 0.3 10^3/uL (0.0-0.5); EOS % 3.4 % (0.0-3.0); HEMATOCRIT 39.7 % (42.0-52.0); HEMOGLOBIN 13.3 g/dl (13.5-17.5); LYMPH # 2.4 10^3/uL (1.5-5.0); LYMPH % 27.6 % (24.0-44.0); MEAN CORPUSCULAR HEMOGLOBIN 31.6 pg (27.0-33.0); MEAN CORPUSCULAR HGB CONC 33.5 g/dl (32.0-36.5); MEAN CORPUSCULAR VOLUME 94.3 fl (80.0-96.0); MONO # 0.8 10^3/uL (0.0-0.8); MONO % 8.6 % (2.0-8.0); NEUTROPHILS # 5.2 10^3/uL (1.5-8.5); NEUTROPHILS % 59.2 % (36.0-66.0); PLATELET COUNT, AUTOMATED 295 10^3/uL (150-450); RED BLOOD COUNT 4.21 10^6/uL (4.30-6.10); WHITE BLOOD COUNT 8.7 10^3/uL (4.0-10.0)
[2023-08-14 13:34] LABS: ALBUMIN 3.9 G/DL (3.2-5.2); ALKALINE PHOSPHATASE 98 U/L (46-116); ALT/SGPT 21 U/L (7.0-40); AST/SGOT 16 U/L (<34); BILIRUBIN,TOTAL 0.8 MG/DL (0.3-1.2); BLOOD UREA NITROGEN 19 MG/DL (9-23); CALCIUM LEVEL 9.6 MG/DL (8.3-10.6); CARBON DIOXIDE LEVEL 28 MMOL/L (20-31); CHLORIDE LEVEL 105 MMOL/L (98-107); CREATININE FOR GFR 0.85 MG/DL (0.70-1.30); GLOMERULAR FILTRATION RATE > 60.0 (>42); GLUCOSE, FASTING 91 MG/DL (74-106); POTASSIUM SERUM 4.7 MMOL/L (3.5-5.1); SODIUM LEVEL 141 MMOL/L (136-145)
[2023-08-14 13:35] LABS: FREE T4 1.33 NG/DL (0.89-1.76); THYROXINE (T4) 12.1 UG/DL (4.5-10.9)
[2023-08-14 13:36] LABS: THYROID STIMULATING HORMONE 1.506 uIU/ML (0.55-4.78)
[2023-08-14 13:38] LABS: T UPTAKE 33.5 % (22.5-37.0)
== END ==
LOC: M LAB 12:30
PROVIDERS: ATTEND Internal Medicine Cardiovascular Disease
DX: I48.3 Typical atrial flutter (principal); I11.0 Hypertensive heart disease with heart failure; R94.31 Abnormal electrocardiogram [ECG] [EKG]; I34.0 Nonrheumatic mitral (valve) insufficiency; I50.32 Chronic diastolic (congestive) heart failure

== ENCOUNTER → 2024-03-08 | Outpatient (CLI) | payer MEDICARE ==
[2024-03-08 08:28] LABS: BASO # 0.1 10^3/uL (0.0-0.2); BASO % 0.7 % (0.0-1.0); EOS # 0.3 10^3/uL (0.0-0.5); EOS % 4.5 % (0.0-3.0); HEMATOCRIT 38.7 % (42.0-52.0); HEMOGLOBIN 12.7 g/dl (13.5-17.5); LYMPH # 1.4 10^3/uL (1.5-5.0); LYMPH % 18.9 % (24.0-44.0); MEAN CORPUSCULAR HEMOGLOBIN 30.9 pg (27.0-33.0); MEAN CORPUSCULAR HGB CONC 32.8 g/dl (32.0-36.5); MEAN CORPUSCULAR VOLUME 94.2 fl (80.0-96.0); MONO # 0.7 10^3/uL (0.0-0.8); MONO % 9.8 % (2.0-8.0); NEUTROPHILS # 4.8 10^3/uL (1.5-8.5); NEUTROPHILS % 65.8 % (36.0-66.0); PLATELET COUNT, AUTOMATED 237 10^3/uL (150-450); RED BLOOD COUNT 4.11 10^6/uL (4.30-6.10); WHITE BLOOD COUNT 7.3 10^3/uL (4.0-10.0)
[2024-03-08 08:46] LABS: ALBUMIN 3.7 G/DL (3.2-5.2); BLOOD UREA NITROGEN 30 MG/DL (9-23); CALCIUM LEVEL 9.6 MG/DL (8.3-10.6); CARBON DIOXIDE LEVEL 27 MMOL/L (20-31); CHLORIDE LEVEL 109 MMOL/L (98-107); CREATININE FOR GFR 0.96 MG/DL (0.70-1.30); GLOMERULAR FILTRATION RATE > 60.0 (>42); GLUCOSE, FASTING 119 MG/DL (74-106); PHOSPHORUS LEVEL 3.1 MG/DL (2.4-5.1); SODIUM LEVEL 140 MMOL/L (136-145)
== END ==
LOC: M LAB 07:18
PROVIDERS: ATTEND Internal Medicine Cardiovascular Disease
DX: I50.32 Chronic diastolic (congestive) heart failure (principal); I48.3 Typical atrial flutter; I34.0 Nonrheumatic mitral (valve) insufficiency; I11.0 Hypertensive heart disease with heart failure

== ENCOUNTER → 2025-06-02 | Outpatient (CLI) | payer MEDICARE ==
[~2025-06-02] MED LIST changes: -AMIO200T49 PO; +AMIO200T54 PO
[2025-06-02 06:50] LABS: BASO # 0.1 10^3/uL (0.0-0.2); BASO % 0.8 % (0.0-1.0); EOS # 0.4 10^3/uL (0.0-0.5); EOS % 4.7 % (0.0-3.0); LYMPH # 1.5 10^3/uL (1.5-5.0); LYMPH % 18.5 % (24.0-44.0); MONO # 0.9 10^3/uL (0.0-0.8); MONO % 10.6 % (2.0-8.0); NEUTROPHILS # 5.4 10^3/uL (1.5-8.5); NEUTROPHILS % 65.0 % (36.0-66.0); PLATELET COUNT, AUTOMATED 284 10^3/uL (150-450)
[2025-06-02 07:16] LABS: ALT/SGPT < 9 U/L (7.0-40); AST/SGOT 14 U/L (<34); CALCIUM LEVEL 9.5 MG/DL (8.3-10.6); CARBON DIOXIDE LEVEL 27 MMOL/L (20-31); CHLORIDE LEVEL 106 MMOL/L (98-107); CHOLESTEROL LEVEL 182 MG/DL (<200); CHOLESTEROL RISK RATIO 4.69 (<5); CREATININE FOR GFR 1.13 MG/DL (0.70-1.30); FREE T4 1.23 NG/DL (0.89-1.76); GLOMERULAR FILTRATION RATE 69.1 (>42); LDL CHOLESTEROL 128.6 MG/DL (<100); NON-HDL-C 143.2 MG/DL; POTASSIUM SERUM 4.6 MMOL/L (3.5-5.1); SODIUM LEVEL 142 MMOL/L (136-145); TRIGLYCERIDES LEVEL 73 MG/DL (<150)
== END ==
LOC: M LAB 06:18
PROVIDERS: ATTEND Physician Assistant
DX: I48.0 Paroxysmal atrial fibrillation (principal); Z13.220 Encounter for screening for lipoid disorders; I50.32 Chronic diastolic (congestive) heart failure

== ENCOUNTER → 2025-07-30 | Outpatient (CLI) | payer MEDICARE | LOC: M CARPUL 09:27 | PROVIDERS: ATTEND Physician Assistant | DX: I71.21 Aneurysm of the ascending aorta, without rupture (principal) ==